=== PATIENT | female | born 1950 ===

== ENCOUNTER → 2017-12-12 | Outpatient (CLI) | payer OTHER ==
[~2017-12-12] MED LIST: ASPCH81X PO; HYZ/50125 PO; MISC1CAP27 PO; MULT-506 PO; MULT-842 PO; ROSU5TAB PO
--- NOTE | 2017-12-12 11:58 | DIAGNOSTIC IMAGING REPORT ---
PET/CT SKULL-THIGH HISTORY: Metastatic disease BREAST CANCER TECHNIQUE: PET/CT was performed from the base of the skull through the pelvis following the intravenous administration of 15.2 mCi of F18-FDG. Non-contrast CT imaging was performed over the same range without breath-hold for attenuation correction of PET images and anatomic correlation, but not for primary interpretation as it is not of standard diagnostic quality. CT DOSE: COMPARISON: 08/30/2017 FINDINGS: HEAD AND NECK: There is no FDG-avid disease or significant lymphadenopathy in the imaged portions of the head and the neck. CHEST: Persistent increase in metabolic activity left fourth rib. As she views at maximum 2.2. Geographic extent of the lesion in terms of metabolic activity appears to be no new or interval interval findings within the chest are identified. There is physiologic activity within the myocardium. There is stable postoperative changes and minimal residual activity on a postoperative basis of the right breast. Diminished suggesting partial healing. ABDOMEN/PELVIS: Below the diaphragm, tracer is distributed physiologically in the gastrointestinal and genitourinary tracts. There is no significant lymphadenopathy and no FDG-avid disease. MUSCULOSKELETAL: Left fourth rib activity again mildly improved. IMPRESSION: 1. Stable to slightly improved exam compared to the prior study. 2. Geographic extent and metabolic activity characteristics of the left fourth rib lesion are mildly improved. 3. No new interval or progressive process. The above report was generated using voice recognition software. It may contain grammatical, syntax or spelling errors. Electronically signed by: Vaughn Arana M.D. 12/12/2017 11:57 AM Dictated Date/Time: 12/12/2017 11:20 AM
== END | disposition home or self-care (01) ==
LOC: C.PET 09:02
PROVIDERS: ATTEND Internal Medicine Hematology & Oncology
DX: C50.111 Malignant neoplasm of central portion of right female breast (principal)

== ENCOUNTER → 2018-01-25 | Outpatient (CLI) | payer OTHER ==
[2018-01-25 08:43] VITALS: BP 110/72; PULSE 60; TEMP 36.6; O2SAT 96
--- NOTE | 2018-01-25 10:38 | Radiation Oncology Follow-Up ---
Radiation Oncology Follow-Up Date of Visit Jan 25, 2018. Reason For Visit One-month follow-up Radiation Completion Date To left fourth rib 12/25/17 Diagnosis (1) Carcinoma of central portion of right breast in female, estrogen receptor positive Status: Acute Onset Date: 08/30/2017 Location: Metastasis to the left posterior fourth rib Stage: IV Permanent Comment: Self detected upper central right breast mass Status post biopsy 08/14/2014 Invasive ductal carcinoma Estrogen receptor positive, progesterone receptor positive, HER-2/nataliia negative Status post lumpectomy and sentinel lymph node biopsy limit the 2013 Stage pT2 pN0 M0 Status post completion of radiation therapy November 2014 Antiestrogen therapy November 2014 to June 2017 Rise in CEA prompting completion of CAT scans 05/20/2017 Abnormality of the fourth left posterior rib. Status post biopsy 07/04/2017 revealing metastatic ductal carcinoma Initiation of Aromasin and Xgeva. Aromasin discontinued due to a fatty liver August 2017 treatment with Faslodex and Xgeva PET/CT confirming activity of the left fourth posterior rib Referral for radiation therapy to the area of oligometastasis Status post completion of radiation therapy December 25, 2017. She received 2750 cGy Last Edited By: Anne Winter on Jan 01, 2018 11:28 History of Present Illness Ms Carbajal was found to have a right breast cancer biopsy positive on 2013. Patient went on to have a right lumpectomy and sentinel lymph node biopsy on 09/09/2014. This revealed an invasive ductal carcinoma with 3 negative sentinel lymph nodes. There was evidence of vascular invasion present. The lesion was ER/RI positive and HER-2/nataliia negative. Patient subsequently received a course of adjuvant radiation consisting of 25 fractions of 200 cGy per fraction and a 5 fraction electron boost to the excision cavity. The treatment was delivered from October 2014 and completed on 11/24/2014. The patient then went on to receive treatment with Fosamax and Femara. She was treated from 11/24/2014 through June 2017. Patient continued to have evaluation of her primary site and underwent bilateral diagnostic mammograms on 03/19/2017 which showed no evidence of recurrent disease. A bone density study was performed on 04/26/2017. Bone scan was performed on 05/22/2017. This showed uptake at the posterior lateral portion of the left fourth rib. No other sites of metastatic disease were appreciated. On 07/23/2017 patient underwent bilateral breast ultrasounds with additional studies advised. At this time patient was noted to have a rising CEA. Patient therefore underwent a CT scan of the chest abdomen and pelvis performed on 05/20/2017. This showed a lesion involving the left fourth rib. A biopsy of this lesion was performed on 07/04/2017 and was consistent with metastatic ductal carcinoma. This lesion was strongly ER and RI positive. HER- 2/nataliia was equivocal (2+) and was non-amplified by FISH. Ki-67 index was 15%. Patient had an ultrasound of the pelvis secondary to a fatty liver. Patient was subsequently started on Aromasin and Xgeva starting on 07/25/2017. Patient stopped the Aromasin in August 2017 and started Faslodex and continued on the Xgeva. Patient underwent a PET CT scan on 08/30/2017. This identified a metabolically active bone lesion in the posterior ARC of the left fourth rib. This was suggestive of a single (oligo metastatic) bony metastatic site. The patient was seen by a radiation oncologist in [facility]. They suggested consideration of a stereotactic SB RT treatment given the oligo metastatic site. This treatment was apparently not available including the possibility of respiratory gating and IGRT. For this reason they suggested consideration of treatment in the [place]. Patient was seen by Dr. Joseph Headley, Radiation Oncologist at the [facility] in [place]. They have recommended a repeat PET scan which was referenced above showing no additional sites of metastatic disease. Based on these findings they recommended consultation with radiation oncology to discuss radiation to the disease. They recommended continuing Aromasin plus Afinitor. We're therefore seeing her to evaluate the potential role of radiation in the setting of ongoing metastatic ( bony) site of breast primary. She completed radiation therapy December 25, 2017. She received 2750 cGy to the left rib oligometastasis. Interim History She has been doing well over the past month. She did not develop any area of skin irritation. She denies any pain in her back. She will be seeing Dr. Carly Morrow in follow-up February 04, 2018. Laboratory studies are ordered for prior to that visit. [place] to [place] middle of [place]. She stated she would like a letter for her dentist in regards to any effect radiation would have on dental work. We discussed that radiation exposure to this area is negligible due to the distance from where she had her actual treatment. Nonetheless a letter will be written. The issue more lies within her treatment with Xgeva. They are aware of those particular side effects. We will discuss that further with Dr. Riojas. She also questions about easy bruising. She does take aspirin daily at the instructions of her family physician. We reviewed that this may cause her to bruise more easily also thinning of the skin due to lack of estrogen. She will also discuss this further with her family doctor as well as Dr. Riojas. Allergies Coded Allergies: No Known Allergies (Unverified , 11/22/17) Home Medications Scheduled Aspirin (Aspirin Chewable), 81 MG PO DAILY Misc Natural Products (Triple Flex), 1 CAP PO DAILY Multiple Minerals W/ Vitamins (Tejas Mag Zinc +D3), 1 TAB PO DAILY Multivitamin (Multivitamin), 1 TAB PO DAILY Rosuvastatin Calcium (Crestor), 2 TAB PO DAILY Scheduled PRN Hctz/Losartan (Hyzaar 12.5MG/50MG), 1 TAB PO DAILY PRN for UNDECIDED Review of Systems Gastrointestinal: Symptoms: WNL Oral: Other Oral Symptoms: Has a salty taste in her mouth;Craves sweets; Respiratory: Symptoms: WNL Urinary: Symptoms: WNL Skin: Symptoms: No Problems Physical Exam Vital Signs Date Time Temp Pulse Resp B/P (MAP) Pulse Ox O2 Delivery O2 Flow Rate FiO2 01/25/18 08:43 36.6 60 24 110/72 96 Fatigue: None General Appearance: no apparent distress Eyes: normal inspection, EOMI ENT: normal ENT inspection, hearing grossly normal Neck: no adenopathy, thyroid normal Respiratory/Chest: lungs clear, no respiratory distress, no accessory muscle use Cardiovascular: regular rate, rhythm, no gallop, no murmur Neurologic/Psychiatric: no motor/sensory deficits, alert, normal mood/affect Skin: normal color, warm/dry, no rash Additional Exam Notes: There is no tenderness of the paraspinous musculature or spinal processes. There are no areas of hyperpigmentation. Pain Management Patient Reports Pain: No Pain Management Plan She denied pain therefore requires no pain management. She did ask if she would develop pain what medicines she could use. She periodically uses Aleve or Tylenol. I suggested she use Tylenol should she develop discomfort. Laboratory Laboratory Results: not applicable Pathology Pathology Results: were reviewed, and pertinent findings noted in HPI Imaging Imaging Studies: were reviewed, and pertinent findings noted in HPI Assessment & Plan Plan: She will continue regular follow-up with Dr. Riojas and her primary care physician. She is seeing Dr. Riojas on February 04, 2018. She will discuss further her problems with easy bruising. She also discuss concerns for future dental procedures with Dr. Riojas. We will write her a letter and send it to her home in regards to radiation exposure. This will be mailed to her son's home she is living with him currently. A follow-up appointment with our office was not given. She or her son may call if she has any questions or concerns in the interim. Total Time In Follow-Up I spent 20 minutes speaking to the patient and performing examination. I spent 20 minutes reviewing information, preparing documentation, and completing this note. Copy To Thomas Riojas MD
== END | disposition home or self-care (01) ==
LOC: C.ONC 08:34
PROVIDERS: ATTEND Physician Assistant Medical
DX: Z08 Encounter for follow-up examination after completed treatment for malignant neoplasm (principal); Z92.3 Personal history of irradiation; Z85.3 Personal history of malignant neoplasm of breast

== ENCOUNTER → 2018-01-28 | Outpatient (CLI) | payer OTHER | END | disposition home or self-care (01) | LOC: C.LABSPEC 11:55 | PROVIDERS: ATTEND Physician Assistant | DX: E78.5 Hyperlipidemia, unspecified (principal); E55.9 Vitamin D deficiency, unspecified; R23.8 Other skin changes ==

== ENCOUNTER → 2018-07-01 | Outpatient (CLI) | payer OTHER | END | disposition home or self-care (01) | LOC: C.LAB 09:22 | PROVIDERS: ATTEND Internal Medicine | DX: E55.9 Vitamin D deficiency, unspecified (principal) ==

== ENCOUNTER 2021-01-18 12:10 | Inpatient (IN) ==
--- NOTE | 2021-01-18 13:27 | Emergency Department Note ---
Impression & Plan Pulmonary emboli, Malignant neoplasm of breast metastatic to bone, Abdominal pain, Acute hypokalemia ED Provider Note NAME: JAMES PEREZ AGE: 70 SEX: F : 1950 ARRIVES VIA: Ambulance INFORMANT: Patient ED PROVIDER(S): Chris Jacobson DO CHIEF COMPLAINT: abdominal pain HPI: Patient is a 70-year-old female with metastatic breast cancer to multiple spots that presents the ER for abdominal pain. She notes that she has been having small loose bowel movements for the past week but has not had a large normal bowel movement. She has not been eating or drinking much. She notes that she has some crampy abdominal pain which comes and goes intermittently. She describes as a 4 out of 10. No nausea or vomiting. Denies any dysuria, urgency, or frequency. describes the stool as a sticky jelly but denies any dark tarry stools or bright red blood per rectum. She takes oral chemo daily and every 28 days gets an injection. She does admit to upper and lower back pain which has been present fairly consistently. She does have pain throughout the remainder of her body which is fairly consistent with what she has had before in the past ROS: See above HPI for pertinent positives & negatives. A total of 10 systems r eviewed and were otherwise negative. PAST MEDICAL HISTORY:See Below PAST SURGICAL HISTORY:See Below FAMILY HISTORY:See Below SOCIAL HISTORY:See Below HOME MEDICATIONS:See Below ALLERGIES:See Below VITALS:See Below PHYSICAL EXAMINATION: GENERAL: Sitting up in bed, alert, well appearing, well nourished, no distress, non-toxic EYE EXAM: normal conjunctiva. OROPHARYNX: no exudate, no erythema, lips, buccal mucosa, and tongue normal and mucous membranes are moist NECK: supple, no nuchal rigidity, no adenopathy, non-tender LUNGS: Clear to auscultation. Normal chest wall mechanics HEART: no murmurs, S1 normal and S2 normal ABDOMEN: abdomen soft, non-tender, normo-active bowel sounds, no masses, no rebound or guarding. : Newman in place UPPER EXTREMITIES: upper extremities are grossly normal. LOWER EXTREMITIES: No pitting edema. NEURO EXAM: Normal sensorium, cranial nerves II-XII grossly intact, normal speech, no gross weakness of arms, no gross weakness of legs. MEDICAL DECISION MAKING: Patient is a 70-year-old female with metastatic cancer that presents the ER for abdominal pain. IV was established blood work was obtained. Labs show mild leukopenia at 3.9 thousand and is fairly consistent with previous. No significant anemia. INR unremarkable. BMP with mild hyponatremia at 133 and hypokalemia 2.8. LFTs bilirubin and lipase is unremarkable. UA with nitrates, leuks and white cells and +4 bacteria. Previous cultures were reviewed. She was treated with IV Rocephin. She is given IV potassium. She is given IV pain medications. Discussed with patient and son via telephone. Patient has no previous brain bleeds. She is not been coughing up blood, vomiting blood or having blood in her stool. On the CT of her abdomen pelvis they did find pulmonary embolisms. Patient was placed on heparin and started a low dose bolus. They are updated bedside. Discussed with hospitalist for further evaluation. Triage Nursing notes reviewed. Limited review of prior medical records performed Vital Signs: reviewed and remarkable for no significant abnormalities Differential diagnosis: Differential diagnoses includes but is not limited to gastritis, peptic ulcer disease, GERD, gallbladder disease, pancreatitis, small bowel obstruction, acute coronary syndrome, pericarditis, ischemic bowel, irritable bowel disease, irritable bowel syndrome, appendicitis, diverticulitis, malignancy, hernia, urinary tract infection, torsio, perforation, trauma, infectious. ER treatment provided: See below Diagnostics interpreted by me: ECG: Sinus rhythm rate 62 Normal axis No PVCs QTC 399 Cardiac Monitoring: An order was placed for continuous cardiac monitoring. The monitor shows a rate of 68 with sinus rhythm. Laboratory studies: As stated above and show below. Imaging studies: CT abdomen pelvis as discussed above Consultation(s): Discussed with the hospitalist for further evaluation Procedures: none Critical Care: I have personally spent 32 minutes of critical care time in the direct management of this patient. This includes bedside care, interpretation of diagnostic studies, and testing, discussion with consultants, patient, and family members, and other required patient management activities. This 32 minutes is in excess of all separately billable procedures. 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, estrogen receptor positive (08/30/17) Constipation Dyslipidemia Fever Hyperlipidemia Hypertension Hypertension Malignant neoplasm of bone Metastatic breast cancer Osteoporosis Surgical History H/O colonoscopy History of 2 sections History of hemorrhoidectomy History of hysterectomy History of lumpectomy Family History Father Hypertension Myocardial infarction Mother Heart disease Malignant neoplasm of gallbladder Sister Cervical cancer Other Cancer Denies family history of Ovarian cancer Prostate cancer Breast cancer Colorectal cancer Social History Smoking Status: Never smoker Second Hand Exposure: No; Hx Alcohol Use: No Hx Substance Use: No Preferred Language: Botswanan Communication Ability: Effective Visual Impairment: No Limitations Hearing Ability: Normal Tonal Regulator Required: No Beliefs That Will Affect Care: None marital status: Current Living Situation: Spouse Feels Safe at Home: Yes Childhood Exposure to Second-Hand Smoke: No Dental Care, Regularly: Yes Assistive Devices: None Allergies Allergies Allergy/AdvReac Type Severity Reaction Status Date / Time lactose Allergy Unknown Gastrointestinal Verified 01/18/21 15:26 Upset pork derived (porcine) Allergy Unknown CULTURE Verified 01/18/21 15:26 ISSUES Pork/Porcine Containing Allergy Unknown CULTURE Verified 01/18/21 15:26 Products ISSUES gluten AdvReac Intermediate Gastrointestinal Verified 01/18/21 15:26 Upset tramadol AdvReac Intermediate itching, Verified 01/18/21 15:26 stomach ache, gas and nausea & no appetite. grapefruit AdvReac Unknown Unknown Verified 01/18/21 15:26 Home Meds Home Medications Medication Instructions Recorded Confirmed fentanyl 1 patch TOPICAL Q3D 12/08/20 01/18/21 lidocaine 1 patch TOPICAL DAILY 12/08/20 01/18/21 prochlorperazine maleate 10 mg PO Q6H PRN 12/08/20 01/18/21 acetaminophen [Tylenol] 650 mg PO Q6H PRN 01/18/21 01/18/21 bisacodyl 10 mg FL QPM 01/18/21 01/18/21 dexamethasone 4 mg PO BID 01/18/21 01/18/21 docusate sodium 100 mg PO BID 01/18/21 01/18/21 everolimus (antineoplastic) 7.5 mg PO HS 01/18/21 01/18/21 hydromorphone [Dilaudid] 2 - 6 mg PO Q3H PRN 01/18/21 01/18/21 lorazepam 0 mg PO TID PRN 01/18/21 01/18/21 melatonin 3 mg PO HS 01/18/21 01/18/21 memantine See Rx Instructions .ROUTE .COMPLEX 01/18/21 01/18/21 mirtazapine 15 mg PO HS 01/18/21 01/18/21 nystatin 1 applic TOPICAL BID PRN 01/18/21 01/18/21 olanzapine 5 mg PO HS 01/18/21 01/18/21 ondansetron 4 mg PO AC 01/18/21 01/18/21 phenyleph-shark [id number] 1 applic FL QID PRN 01/18/21 01/18/21 [Preparation H] polyethylene glycol 3350 [Miralax] 17 g PO DAILY PRN 01/18/21 01/18/21 sennosides [senna] 17.2 mg PO HS PRN 01/18/21 01/18/21 Previous Rx's Medication Instructions Recorded pantoprazole [Protonix] 40 mg PO QAM #30 tab 11/02/20 losartan 25 mg tablet 25 mg PO QDL #90 tab 11/04/20 lactulose 20 g PO BID #1500 ml 11/06/20 Results & Data (ED) Vital Signs Vital Signs - 24 hr 01/18/21 12:29 01/18/21 13:55 Temperature 37.1 C Temperature Source Oral Pulse Rate 87 Pulse Rate [Right Finger] 78 Pulse Rhythm Regular Pulse Rhythm [Right Finger] Regular Pulse Strength Normal Pulse Strength [Right Finger] Normal Respiratory Rate 20 20 Respiratory Effort / Characteristics Non-Labored Spontaneous Non-Labored Spontaneous Respiratory Depth Normal Normal Respiratory Pattern Regular Regular Blood Pressure 136/76 Blood Pressure [Left Arm] 139/73 Blood Pressure Mean 96 Blood Pressure Mean [Left Arm] 95 Blood Pressure Position Sitting Blood Pressure Position [Left Arm] Lying Pulse Oximetry 98 97 Oxygen Delivery Method Room Air Room Air Sepsis Recent Fever Within 48 Hours No Sepsis New/Unexplained Change in Mental Status No Sepsis Action Taken by Nursing No Action Required Laboratory Data Result diagrams: 01/18/21 13:45 01/18/21 13:45 Lab Results 01/18/21 01/18/21 01/18/21 Range/Units 13:45 13:45 13:45 WBC 3.94 L (4.8-10.8) K/uL RBC 4.11 L (4.2-5.4) M/uL Hgb 12.8 (12.0-16.0) g/dL Hct 35.8 L (37-47) % MCV 87.1 (80-100) fL MCH 31.1 (25-34) pg MCHC 35.8 (32-36) g/dL RDW Std Deviation 42.6 (36.4-46.3) fL RDW Coeff of Sarah 13.2 (11.5-14.5) % Plt Count 177 (130-400) K/uL MPV 8.7 (7.4-10.4) fL Immature Gran % (Auto) 1.0 % Neut % (Auto) 82.4 % Lymph % (Auto) 11.2 % Wake % (Auto) 4.6 % Eos % (Auto) 0.8 % Baso % (Auto) 0.0 % Neut # (Auto) 3.25 (1.4-6.5) K/uL Lymph # (Auto) 0.44 L (1.2-3.4) K/uL Wake # (Auto) 0.18 (0.11-0.59) K/uL Eos # (Auto) 0.03 (0-0.5) K/uL Baso # (Auto) 0.00 (0-0.2) K/uL Immature Gran # (Auto) 0.04 H (0.00-0.02) K/uL PT (9.0-12.0) Seconds INR (0.9-1.1) APTT (21.0-31.0) Seconds PTT Ratio Sodium 133 L (136-145) mmol/L Potassium 2.8 L (3.5-5.1) mmol/L Chloride 100 (98-107) mmol/L Carbon Dioxide 26 (21-32) mmol/L Anion Gap 7.0 (3-11) BUN 10 (7-18) mg/dl Creatinine 0.35 L (0.6-1.2) mg/dl Est Cr Clr Drug Dosing 136.2 ml/min Est GFR ( Amer) 129.6 Est GFR (Non-Af Amer) 111.8 BUN/Creatinine Ratio 28.7 H (10-20) Glucose 96 (70-99) mg/dl Calcium 8.5 (8.5-10.1) mg/dl Total Bilirubin 0.4 (0.2-1) mg/dl AST 33 (15-37) U/L ALT 55 (12-78) U/L Alkaline Phosphatase 66 (45-117) U/L Total Protein 5.8 L (6.4-8.2) gm/dl Albumin 2.7 L (3.4-5.0) gm/dl Globulin 3.1 (2.5-4.0) gm/dl Albumin/Globulin Ratio 0.9 (0.9-2) Lipase 129 (73-393) U/L Urine Color Dark Yellow Urine Appearance Turbid A (Clear) Urine pH 6.0 (4.5-7.5) Ur Specific [place] 1.031 H (1.000-1.030) Urine Protein 1+ H (Negative) Urine Glucose (UA) Negative (Negative) Urine Ketones 1+ H (Negative) Urine Blood 3+ H (Negative) Urine Nitrite Positive A (Negative) Urine Bilirubin Negative (Negative) Urine Urobilinogen Negative (Negative) Ur Leukocyte Esterase 2+ H (Negative) Urine WBC (Auto) >30 H (0-5) /hpf Urine RBC (Auto) 0-4 (0-4) /hpf U Hyaline Cast (Auto) 0 (0-5) /lpf U Epithel Cells (Auto) 0-5 (0-5) /lpf Urine Bacteria (Auto) 4+ H (Negative) Urine Yeast Present A (None Prsent) 01/18/21 Range/Units 13:45 WBC (4.8-10.8) K/uL RBC (4.2-5.4) M/uL Hgb (12.0-16.0) g/dL Hct (37-47) % MCV (80-100) fL MCH (25-34) pg MCHC (32-36) g/dL RDW Std Deviation (36.4-46.3) fL RDW Coeff of Sarah (11.5-14.5) % Plt Count (130-400) K/uL MPV (7.4-10.4) fL Immature Gran % (Auto) % Neut % (Auto) % Lymph % (Auto) % Wake % (Auto) % Eos % (Auto) % Baso % (Auto) % Neut # (Auto) (1.4-6.5) K/uL Lymph # (Auto) (1.2-3.4) K/uL Wake # (Auto) (0.11-0.59) K/uL Eos # (Auto) (0-0.5) K/uL Baso # (Auto) (0-0.2) K/uL Immature Gran # (Auto) (0.00-0.02) K/uL PT 10.4 (9.0-12.0) Seconds INR 1.0 (0.9-1.1) APTT 21.7 (21.0-31.0) Seconds PTT Ratio 0.8 Sodium (136-145) mmol/L Potassium (3.5-5.1) mmol/L Chloride (98-107) mmol/L Carbon Dioxide (21-32) mmol/L Anion Gap (3-11) BUN (7-18) mg/dl Creatinine (0.6-1.2) mg/dl Est Cr Clr Drug Dosing ml/min Est GFR ( Amer) Est GFR (Non-Af Amer) BUN/Creatinine Ratio (10-20) Glucose (70-99) mg/dl Calcium (8.5-10.1) mg/dl Total Bilirubin (0.2-1) mg/dl AST (15-37) U/L ALT (12-78) U/L Alkaline Phosphatase (45-117) U/L Total Protein (6.4-8.2) gm/dl Albumin (3.4-5.0) gm/dl Globulin (2.5-4.0) gm/dl Albumin/Globulin Ratio (0.9-2) Lipase (73-393) U/L Urine Color Urine Appearance (Clear) Urine pH (4.5-7.5) Ur Specific [place] (1.000-1.030) Urine Protein (Negative) Urine Glucose (UA) (Negative) Urine Ketones (Negative) Urine Blood (Negative) Urine Nitrite (Negative) Urine Bilirubin (Negative) Urine Urobilinogen (Negative) Ur Leukocyte Esterase (Negative) Urine WBC (Auto) (0-5) /hpf Urine RBC (Auto) (0-4) /hpf U Hyaline Cast (Auto) (0-5) /lpf U Epithel Cells (Auto) (0-5) /lpf Urine Bacteria (Auto) (Negative) Urine Yeast (None Prsent) Administered Medications Heparin Sodium/Dextrose (Heparin Sodium/Dextrose) 25,000 units in 500 mls @ 0.02 mls/hr IV .Q24H KEYANNA; Protocol Stop: 02/17/21 15:29 Last Admin: 01/18/21 16:22 Dose: 650 units/hr, 13 mls/hr Documented by: [id number] Cosigned by: [id number] Discontinued Medications Heparin Sodium (Porcine) (Heparin Sod (Porcine) 1000 Unit/Ml 10 Ml Vial) Confirm Administered Dose 10,000 units .ROUTE .STK-MED ONE Stop: 01/18/21 16:03 Last Admin: 01/18/21 16:22 Dose: 3,000 units Documented by: [id number] Cosigned by: [id number] Heparin Sodium/Dextrose (Heparin Iv Low Dose With Bolus) 1 ea IV NOW STA; Protocol Stop: 01/18/21 15:23 Last Admin: 01/18/21 16:23 Dose: 1 ea Documented by: [id number] Sodium Chloride (Nss 1000ml) 1,000 mls @ 999 mls/hr IV .Q1H1M ONE Stop: 01/18/21 14:28 Last Admin: 01/18/21 13:54 Dose: 999 mls/hr Documented by: [id number] Potassium Chloride (K [place] / Wtr) 10 meq in 100 mls @ 100 mls/hr IV Q1H KEYANNA Stop: 01/18/21 17:14 Last Admin: 01/18/21 16:05 Dose: 100 mls/hr Documented by: [id number] Ioversol (Ioversol 100ml) 92 ml IV ONCE ONE Stop: 01/18/21 14:36 Last Admin: 01/18/21 14:37 Dose: 92 ml Documented by: [id number] Discharge Plan Visit Data Chief Complaint: Constipation ED Provider: Chris Jacobson Discharge Problem: Pulmonary emboli, Malignant neoplasm of breast metastatic to bone, Abdominal pain, Acute hypokalemia Forms Stand Alone Forms: [employer] Prescriptions Prescriptions: No Action losartan 25 mg tablet 25 mg PO QDL Qty: 90 RF: 3 pantoprazole [Protonix] 40 mg tablet,delayed release (DR/EC) 40 mg PO QAM Qty: 30 RF: 1 lactulose 20 gram/30 mL solution 20 g PO BID Qty: 1500 RF: 0 fentanyl 50 mcg/hr patch 72 hour 1 patch topical Q3D RF: 0 prochlorperazine maleate 10 mg tablet 10 mg PO Q6H PRN (Reason: Nausea) RF: 0 lidocaine 5 % adhesive patch,medicated 1 patch topical DAILY RF: 0 sennosides [senna] 8.6 mg Tablet 17.2 mg PO HS PRN (Reason: Constipation) RF: 0 acetaminophen [Tylenol] 325 mg Tablet 650 mg PO Q6H PRN (Reason: Mild Pain (Scale Score 1-4)) RF: 0 olanzapine 5 mg Tablet 5 mg PO HS RF: 0 melatonin 3 mg Tablet 3 mg PO HS RF: 0 bisacodyl 10 mg Suppository 10 mg FL QPM RF: 0 nystatin 100,000 unit/gram Cream 1 applic TOPICAL BID PRN (Reason: Rash) RF: 0 dexamethasone 4 mg Tablet 4 mg PO BID RF: 0 docusate sodium 100 mg Capsule 100 mg PO BID RF: 0 mirtazapine 15 mg Tablet 15 mg PO HS RF: 0 polyethylene glycol 3350 [Miralax] 17 gram/dose Powder 17 g PO DAILY PRN (Reason: Constipation) RF: 0 lorazepam 2 mg/mL concentrate 0 mg PO TID PRN (Reason: Anxiety) RF: 0 memantine 5 mg Tablet See Rx Instructions .ROUTE .COMPLEX RF: 0 Preparation H Cream 1 applic FL QID PRN (Reason: Hemorrhoids) RF: 0 everolimus (antineoplastic) 7.5 mg Tablet 7.5 mg PO HS RF: 0 hydromorphone [Dilaudid] 2 mg tablet 2 - 6 mg PO Q3H PRN (Reason: pain) RF: 0 ondansetron 4 mg tablet,disintegrating 4 mg PO AC RF: 0 Discharge Problem: Pulmonary emboli Qualifiers: Pulmonary embolism type: unspecified Chronicity: acute Acute cor pulmonale presence: unspecified Qualified Code(s): I26.99 - Other pulmonary embolism without acute cor pulmonale Abdominal pain Qualifiers: Abdominal location: unspecified location Qualified Code(s): R10.9 - Unspecified abdominal pain
[2021-01-18] MEDS ORDERED: SODIUM CHLORIDE 0.9% 1000ML 1,000 ML IV ONE (13:28)
[2021-01-18 14:04] LABS: Eosinophils # (auto) 0.03 K/uL (0-0.5); Eosinophils % (auto) 0.8 %; Hematocrit (blood only) 35.8 % (37-47); Hemoglobin 12.8 g/dL (12.0-16.0); Immature Granulocytes # (auto) 0.04 K/uL (0.00-0.02); Lymphocytes # (auto) 0.44 K/uL (1.2-3.4); Lymphocytes % (auto) 11.2 %; Mean Corpuscular Hemoglobin 31.1 pg (25-34); Mean Corpuscular Hgb Conc 35.8 g/dL (32-36); Mean Corpuscular Volume 87.1 fL (80-100); Mean Platelet Volume 8.7 fL (7.4-10.4); Monocytes # (auto) 0.18 K/uL (0.11-0.59); Monocytes % (auto) 4.6 %; Neutrophils # (auto) 3.25 K/uL (1.4-6.5); Neutrophils % (auto) 82.4 %; Platelet Count 177 K/uL (130-400); RDW Coefficient of Variation 13.2 % (11.5-14.5); RDW Standard Deviation 42.6 fL (36.4-46.3); Red Blood Count 4.11 M/uL (4.2-5.4); White Blood Count 3.94 K/uL (4.8-10.8)
[2021-01-18 14:06] LABS: Appearance Urine Turbid (Clear); Bacteria Urine Automated 4+ (Negative); Bilirubin Urine Negative (Negative); Blood Urine 3+ (Negative); Color Urine Dark Yellow; Epithelial Cell Urine Auto 0-5 /lpf (0-5); Glucose Urine UA Negative (Negative); Ketones Urine 1+ (Negative); Leukocyte Esterase Urine 2+ (Negative); Nitrite Urine Positive (Negative); Protein Urine 1+ (Negative); Specific Gravity Urine 1.031 (1.000-1.030); Urobilinogen Urine Negative (Negative); WBC Urine Automated >30 /hpf (0-5)
[2021-01-18 14:21] LABS: Cast Urine Automated 0 /lpf (0-5); RBC Urine Automated 0-4 /hpf (0-4)
[2021-01-18 14:26] LABS: Albumin Level 2.7 gm/dl (3.4-5.0); BUN Creatinine Ratio 28.7 (10-20); Calcium 8.5 mg/dl (8.5-10.1); Creatinine Clr Calc Pharmacy 136.2 ml/min; Est GFR (African American) 129.6; Est GFR (Non-African American) 111.8; Potassium 2.8 mmol/L (3.5-5.1)
[2021-01-18 14:28] LABS: Albumin Globulin Ratio 0.9 (0.9-2); Bilirubin,Total 0.4 mg/dl (0.2-1); Globulin 3.1 gm/dl (2.5-4.0); Total Protein 5.8 gm/dl (6.4-8.2)
[2021-01-18] MEDS ORDERED: OPTIRAY 320 100ml IV ONE (14:35)
--- NOTE | 2021-01-18 14:56 | CT Scan Report ---
CT abd pelvis IV con only CLINICAL HISTORY: Abdominal pain. Metastatic carcinoma. COMPARISON STUDY: December 08, 2020 TECHNIQUE: Patient was scanned in a dynamic helical fashion during intravenous administration of 92 c c of Optiray 320 A dose lowering technique was utilized adhering to the principles of ALARA. CT DOSE: 323.17 mGycm FINDINGS: Lower chest: There is a suspected right lower lobe pulmonary artery filling defect. CT angiography th e chest should be considered in follow-up to confirm the presence of pulmonary embolism. There are le ft basilar atelectatic changes. Liver: There are stable too small to characterize there is a new 7 mm right hepatic lobe hypodensity. Metastatic disease must be considered. There are a few additional tiny too small to characterize hep atic hypodensities. Gallbladder: Unremarkable. Spleen: Normal in size and attenuation. Pancreas: Unremarkable. Adrenal glands: Unremarkable. Kidneys: There is symmetric renal cortical enhancement. The kidneys are normal in size without hydron ephrosis. Bowel: There is a stool and fluid-filled distended colon down to the level of the anus. There is rect al wall thickening. There is presacral edema. Clinical correlation regards to a proctitis is recommen ded. There are no transition zones to indicate bowel obstruction. The appendix appears normal. Peritoneum: There is no free air. There is minimal presacral edema/fluid. There is trace fluid parall eling the left iliac vessels. Vasculature: The abdominal aorta is normal in course and caliber. Adenopathy: None. Pelvic viscera: The uterus appears surgically absent. There is an indwelling Newman catheter. Skeletal structures: No destructive osseous lesions are seen. There is a stable sclerotic lesion invo lving the left anterior eighth rib. IMPRESSION: 1. Possible right lower lobe pulmonary artery filling defect. CT angiography the chest should be cons idered in follow-up to confirm or effusion presence of acute pulmonary embolism 2. Interval development of a 7 mm hypodense lesion within the right hepatic lobe. Metastatic disease is the diagnosis of exclusion 3. Distended stool and fluid-filled colon. The rectum measures 73 mm in diameter. There is rectal wal l thickening, and presacral edema. Clinical correlation regards to a proctitis is recommended. ACT 112: Negative or not required by law. Electronically signed by: Blake Patel M.D. 01/18/2021 2:54 PM
[2021-01-18] MEDS ORDERED: Heparin IV Adult Wt-Based Low-Dose WITH Bolus Protocol IV STA (15:22)
[2021-01-18] MEDS ORDERED: cefTRIAXone SODIUM 1,000 MG/50 ML BAG IV STA (15:27)
[2021-01-18] MEDS: HEPARIN SOD (PORCINE) 1000 UNIT/ML ONE ×2 (16:04→16:22)
[2021-01-18] MEDS: HEPARIN SODIUM/DEXTROSE 25,000 UNITS/500 ML BAG IV SCH ×2 (16:04→16:22)
[2021-01-18] MEDS: POTASSIUM CHLORIDE / WTR 10 MEQ/100 ML PLCT IV SCH ×2 (16:05→17:28)
[2021-01-18 16:29] LABS: Partial Thromboplastin Ratio 0.8; Partial Thromboplastin Time 21.7 Seconds (21.0-31.0); Prothrombin Time 10.4 Seconds (9.0-12.0)
--- NOTE | 2021-01-18 16:56 | History & Physical Report ---
Date of Service January 18, 2021 Assessment & Plan (1) Malignant neoplasm of breast metastatic to bone: End stage, Stage IV breast cancer with metastatic disease to brain and bone. Was recently discharged from a [facility] hospital. Attempted to call Dr. Schultz's office, but no answer. Will try again tomorrow. - Continue home everolimus - Palliative care consult (2) Constipation: CT a/p review by me on 01/18. Grossly distended colon, though no distal b lockage. Higher stool burden is likely causing overflow diarrhea. - Will reach out to general surgery tomorrow re: OR washout. - Aggressive upper bowel regimen in hopes of loosening higher stool. (3) Pulmonary embolism: PE incidentally noted on CT a/p on 01/18. No present symptoms. - Heparin gtt initiated by the ED. - Will get CTA chest to bag patcher clot burden. - TTE (4) Hypertension: BP presetnly 140/70. - Continue home losartan History of Present Illness Primary Care Provider: Manolo Troy MD 70yo F w/ hx of metastatic breast cancer who presents with constipation and newly found PE. The patient was in the hospital until approx. 1 week ago when she was sent home from a [facility] hospital. Her reports that for the last week, she has had no solid BMs and only had watery BMs since then. She has also had increasing stomach & abdominal pain. She was brought to the ER, and was found to have a PE. She denies shortness of breath or chest pain at this time. Allergies Allergy/AdvReac Type Severity Reaction Status Date / Time lactose Allergy Unknown Gastrointestinal Verified 01/18/21 15:26 Upset pork derived (porcine) Allergy Unknown CULTURE Verified 01/18/21 15:26 ISSUES Pork/Porcine Containing Allergy Unknown CULTURE Verified 01/18/21 15:26 Products ISSUES gluten AdvReac Intermediate Gastrointestinal Verified 01/18/21 15:26 Upset tramadol AdvReac Intermediate itching, Verified 01/18/21 15:26 stomach ache, gas and nausea & no appetite. grapefruit AdvReac Unknown Unknown Verified 01/18/21 15:26 Home Medications Medication Instructions Recorded Confirmed Type pantoprazole [Protonix] 40 mg PO QAM #30 tab 11/02/20 01/18/21 Rx losartan 25 mg tablet 25 mg PO QDL #90 tab 11/04/20 01/18/21 Rx lactulose 20 g PO BID #1500 ml 11/06/20 01/18/21 Rx fentanyl 1 patch TOPICAL Q3D 12/08/20 01/18/21 History lidocaine 1 patch TOPICAL DAILY 12/08/20 01/18/21 History prochlorperazine maleate 10 mg PO Q6H PRN 12/08/20 01/18/21 History acetaminophen [Tylenol] 650 mg PO Q6H PRN 01/18/21 01/18/21 History bisacodyl 10 mg NV QPM 01/18/21 01/18/21 History dexamethasone 4 mg PO BID 01/18/21 01/18/21 History docusate sodium 100 mg PO BID 01/18/21 01/18/21 History everolimus (antineoplastic) 7.5 mg PO HS 01/18/21 01/18/21 History hydromorphone [Dilaudid] 2 - 6 mg PO Q3H PRN 01/18/21 01/18/21 History lorazepam 0 mg PO TID PRN 01/18/21 01/18/21 History melatonin 3 mg PO HS 01/18/21 01/18/21 History memantine See Rx Instructions .ROUTE .COMPLEX 01/18/21 01/18/21 History mirtazapine 15 mg PO HS 01/18/21 01/18/21 History nystatin 1 applic TOPICAL BID PRN 01/18/21 01/18/21 History olanzapine 5 mg PO HS 01/18/21 01/18/21 History ondansetron 4 mg PO AC 01/18/21 01/18/21 History phenyleph-shark pjw-wswh-bsf 1 applic [place] QID PRN 01/18/21 01/18/21 History [Preparation H] polyethylene glycol 3350 [Miralax] 17 g PO DAILY PRN 01/18/21 01/18/21 History sennosides [senna] 17.2 mg PO HS PRN 01/18/21 01/18/21 History Past Med/Surg History Medical History Carcinoma of central portion of right breast in female, estrogen receptor pos itive (08/30/17) Constipation Dyslipidemia Fever Hyperlipidemia Hypertension Hypertension Malignant neoplasm of bone Metastatic breast cancer Osteoporosis Surgical History H/O colonoscopy History of 2 sections History of hemorrhoidectomy History of hysterectomy History of lumpectomy Family History Father Hypertension Myocardial infarction Mother Heart disease Malignant neoplasm of gallbladder Sister Cervical cancer Other Cancer Denies family history of Ovarian cancer Prostate cancer Breast cancer Colorectal cancer Social History Smoking Status: Never smoker Second Hand Exposure: No; Hx Alcohol Use: No Hx Substance Use: No Preferred Language: Indonesian Communication Ability: Effective Visual Impairment: No Limitations Hearing Ability: Normal Application Security Engineer Required: No Beliefs That Will Affect Care: None marital status: Current Living Situation: Spouse Feels Safe at Home: Yes Childhood Exposure to Second-Hand Smoke: No Dental Care, Regularly: Yes Assistive Devices: None Review of Systems Review of Systems: All systems reviewed & are unremarkable except as noted in HPI & below Physical Exam Constitutional: + acute distress Eyes: EOM intact bilaterally; no conjunctival abnormality ENMT: external ear and nose normal, oropharynx normal Neck: trachea midline, no thyromegaly normal visual inspection Respiratory: normal respiratory effort, lungs clear to auscultation no respiratory distress Cardiovascular: RRR, no murmur, no edema Gastrointestinal (Abdomen): Inspection/Auscultation: abdomen normal to inspection; abdomen not distended Skin: no rashes, warm and dry Neurologic: awake; + does not move all extremities (No left leg movement) Speech / Cognition: + abnormal cognition (Very slow responses.) Psychiatric: Orientation: alert, oriented to person and cooperative Results & Data Results & Data ([facility]) Vital Signs (Past 12 Hours) Vital Signs Temp Pulse Pulse Resp BP BP Pulse Ox 01/18/21 13:55 78 20 139/73 97 01/18/21 12:29 37.1 C 87 20 136/76 98 PG Care Time/CCT Total # of Minutes Spent Total Time Spent with Patient: Total time spent is greater than 50% in coordination of care (as documented) at patient's floor/unit and/or counseling patient: Coding Level of Care Code 49520 Initial Inpt Care Lvl 3 Diagnoses Malignant neoplasm of breast metastatic to bone C50.919; C79.51 Constipation K59.00 Pulmonary embolism I26.99 Hypertension I10 Hypertension type: essential hypertension (1) Hypertension Hypertension type: essential hypertension Qualified Code(s): I10 - Essential (primary) hypertension
[2021-01-18] MEDS ORDERED: MoRPHine SULFATE 4 MG/ML 1 ML CARP\\VIAL IV STA (17:15)
[2021-01-18] MEDS ORDERED: PROCHLORPERAZINE MALEATE 10 MG TAB PO PRN (20:42)
[2021-01-18] MEDS ORDERED: ONDANSETRON INJ 2 MG/ML 2 ML VIAL IV PRN (20:42)
[2021-01-18] MEDS ORDERED: fentaNYL 50 MCG/HR TDSY TD SCH (21:00)
[2021-01-18] MEDS: LACTULOSE SYRUP 30 GM/45 ML UDP PO SCH (21:46)
[2021-01-18] MEDS: DOCUSATE SODIUM 100 MG CAP PO SCH (22:12)
[2021-01-18] MEDS: MIRTAZAPINE TAB 15 MG TAB PO SCH (22:12)
[2021-01-18] MEDS: SENNA 8.6 MG TAB PO PRN (22:12)
[2021-01-18] MEDS: OLANZapine 5 MG TABLET PO SCH (22:13)
[2021-01-18] MEDS: bisacodyL 10 MG SUPP PR SCH (22:14)
[2021-01-18] MEDS: LIDOCAINE 5% 1 PATCH TD SCH (22:14)
[2021-01-18] MEDS: MELATONIN 3 MG TAB PO SCH (22:31)
[2021-01-18 23:38] LABS: Partial Thromboplastin Time 53.9 Seconds (21.0-31.0)
[2021-01-19] MEDS: CHECK fentaNYL PATCH PLACEMENT SCH ×3 (00:45→15:23)
[2021-01-19] MEDS: ACETAMINOPHEN 325 MG TAB PO PRN (03:31)
[2021-01-19 07:27] LABS: Hematocrit (blood only) 33.1 % (37-47); Mean Corpuscular Hgb Conc 36.3 g/dL (32-36); Mean Corpuscular Volume 85.5 fL (80-100); Mean Platelet Volume 8.6 fL (7.4-10.4); Platelet Count 160 K/uL (130-400); Red Blood Count 3.87 M/uL (4.2-5.4); White Blood Count 3.88 K/uL (4.8-10.8)
[2021-01-19 07:51] LABS: Partial Thromboplastin Time 52.4 Seconds (21.0-31.0)
[2021-01-19] MEDS: LACTULOSE SYRUP 30 GM/45 ML UDP PO SCH ×3 (08:10→21:28)
[2021-01-19] MEDS: PANTOprazole 40 MG TAB PO SCH (08:11)
[2021-01-19] MEDS: POLYETHYLENE (MIRALAX) 17 GM PACK PO SCH (08:11)
[2021-01-19] MEDS: DOCUSATE SODIUM 100 MG CAP PO SCH ×2 (08:11→21:32)
[2021-01-19 08:16] LABS: BUN Creatinine Ratio 19.5 (10-20); Blood Urea Nitrogen 4 mg/dl (7-18); Calcium 7.2 mg/dl (8.5-10.1); Carbon Dioxide 25 mmol/L (21-32); Chloride 102 mmol/L (98-107); Creatinine Clr Calc Pharmacy 227.1 ml/min; Est GFR (African American) > 150.0; Est GFR (Non-African American) 132.3; Glucose 109 mg/dl (70-99); Magnesium 2.6 mg/dl (1.8-2.4); Potassium 2.5 mmol/L (3.5-5.1); Sodium 134 mmol/L (136-145)
[2021-01-19] MEDS: HYDROmorphone HCL 2 MG TAB PO PRN ×2 (09:45→14:23)
[2021-01-19] MEDS: EVEROLIMUS 7.5 MG PO SCH (11:59)
[2021-01-19] MEDS: LOSARTAN POTASSIUM 25 MG TAB PO SCH (12:00)
[2021-01-19] MEDS ORDERED: OPTIRAY 320 125ml IV ONE (13:09)
--- NOTE | 2021-01-19 13:24 | Hospitalist Progress Note ---
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 Was recently discharged from a [facility] hospital. Attempted to call Dr. Schultz's office, but no answer. Will try again tomorrow. - Continue home everolimus 7.5 mg PO daily - Palliative care consult (2) Constipation: CT a/p review by me on 01/18. Grossly distended colon, though no distal blockage. Higher stool burden is likely causing overflow diarrhea. - Aggressive upper bowel regimen in hopes of loosening higher stool. - Added Relistor to try to improve GI motility in the face of high opiate needs (3) Pulmonary embolism: PE incidentally noted on CT a/p on 01/18. No present symptoms. - Heparin gtt initiated by the ED. - Will get CTA chest to sewing machine mechanic clot burden. - TTE pending (4) Hypertension: BP presetnly 110/60. - Continue home losartan Admission and Anticipated Discharge Date Admission Date: January 18, 2021 Subjective More comfortable today, but no change in bowel habits. Just small, liquid. Reports no fevers/chills, chest pain, shortness of breath, abdominal pain, nausea, or vomiting. Physical Exam Constitutional: + acute distress Eyes: EOM intact bilaterally; no conjunctival abnormality ENMT: external ear and nose normal, oropharynx normal Neck: trachea midline, no thyromegaly normal visual inspection Respiratory: normal respiratory effort, lungs clear to auscultation no respiratory distress Cardiovascular: RRR, no murmur, no edema Gastrointestinal (Abdomen): Inspection/Auscultation: abdomen normal to inspection; abdomen not distended Skin: no rashes, warm and dry Neurologic: awake; + does not move all extremities (No left leg movement) Speech / Cognition: + abnormal cognition (Very slow responses.) Psychiatric: Orientation: alert, oriented to person and cooperative Results & Data Results & Data ([facility]) Vital Signs (Past 12 Hours) Vital Signs Temp Pulse Resp BP Pulse Ox 01/19/21 12:45 37.1 C 91 H 18 109/63 96 PG Care Time/CCT Total # of Minutes Spent Total Time Spent with Patient: Total time spent is greater than 50% in coordination of care (as documented) at patient's floor/unit and/or counseling patient: Coding Level of Care Code 89821 Subseq Hosp Care Lvl 2 Diagnoses Malignant neoplasm of breast metastatic to bone C50.919; C79.51 Constipation K59.00 Pulmonary embolism I26.99 Hypertension I10 Hypertension type: essential hypertension (1) Hypertension Hypertension type: essential hypertension Qualified Code(s): I10 - Essential (primary) hypertension
--- NOTE | 2021-01-19 13:43 | CT Scan Report ---
CHEST CTA for PULMONARY ARTERIES CT DOSE: 220.07 mGycm HISTORY: Pulmonary embolus identified on abdomen and pelvis CT. Assess for clot burden. History of me tastatic breast cancer. TECHNIQUE: Multiaxial CT images of the chest were performed following the intravenous administration of contrast to evaluate the pulmonary arteries. Maximal intensity projection images were also obtaine d. A dose lowering technique was utilized adhering to the principles of ALARA. COMPARISON STUDY: Chest CT 10/27/2020. FINDINGS: Normal caliber thoracic aorta with no evidence for dissection. The heart is normal in size. No pleural or pericardial effusions. Confirmation of the filling defect seen within the right lower lobe segmental and subsegmental pulmonary arteries consistent with pulmonary emboli. This is similar to the prior study. No additional filling defects within the remaining pulmonary arteries. No evidenc e for right-sided heart strain. Multinodular thyroid gland with the largest on the left measuring 8 m m. No mediastinal or hilar lymphadenopathy. Stable 8 mm hypodense lesion seen within the anterior seg ment of the right hepatic lobe. This may represent a cyst. Normal esophagus. Postoperative changes ag ain noted within the right breast. No axillary lymphadenopathy. No significant change within the oste oblastic metastatic disease most pronounced within the upper thoracic spine. No pneumothorax. The chris tral airways are patent. Stable 5 mm subpleural nodule within the right upper lobe anteriorly on imag e 95. Bibasilar linear densities favor subsegmental atelectasis. No new pulmonary nodules identified. No focal lung consolidations to suggest pneumonia. IMPRESSION: 1. Confirmation of the right lower lobe segmental/subsegmental pulmonary emboli. These are similar to the prior study. No additional pulmonary emboli identified. No evidence for right-sided heart strain . 2. Stable osteoblastic metastatic disease. 3. Stable 5 mm right upper lobe nodule. This bears watching future examinations. No new pulmonary nod ules identified. 4. These findings were called/faxed to the referring physician following dictation. ACT 112: Negative or not required by law. Electronically signed by: Shelton Salazar M.D. 01/19/2021 1:42 PM
[2021-01-19] MEDS: POTASSIUM CHLORIDE 40 MEQ in SODIUM CHLORIDE 0.9% 1000ML 1,000 ML IV SCH (14:22)
[2021-01-19] MEDS: POTASSIUM CHLORIDE CRTAB 20 MEQ TABCR PO SCH ×2 (14:22→21:26)
[2021-01-19] MEDS: METHYLNALTREXONE BROMIDE 12 MG/0.6 ML VIAL SQ SCH (14:23)
[2021-01-19] MEDS: HEPARIN SODIUM/DEXTROSE 25,000 UNITS/500 ML BAG IV SCH (15:23)
[2021-01-19] MEDS: MIRTAZAPINE TAB 15 MG TAB PO SCH (21:27)
[2021-01-19] MEDS: OLANZapine 5 MG TABLET PO SCH (21:27)
[2021-01-19] MEDS: LIDOCAINE 5% 1 PATCH TD SCH (21:29)
[2021-01-19] MEDS: bisacodyL 10 MG SUPP PR SCH (21:32)
[2021-01-19] MEDS: MELATONIN 3 MG TAB PO SCH (21:32)
[2021-01-20] MEDS: CHECK fentaNYL PATCH PLACEMENT SCH ×5 (00:01→23:22)
[2021-01-20] MEDS: fentaNYL 50 MCG/HR TDSY TD SCH (00:47)
[2021-01-20] MEDS: ACETAMINOPHEN 325 MG TAB PO PRN ×2 (04:48→19:29)
[2021-01-20] MEDS: LACTULOSE SYRUP 30 GM/45 ML UDP PO SCH ×4 (08:31→22:10)
[2021-01-20] MEDS: PANTOprazole 40 MG TAB PO SCH (08:32)
[2021-01-20] MEDS: POLYETHYLENE (MIRALAX) 17 GM PACK PO SCH (08:33)
[2021-01-20] MEDS: EVEROLIMUS 7.5 MG PO SCH (08:34)
[2021-01-20] MEDS: DOCUSATE SODIUM 100 MG CAP PO SCH ×2 (08:36→21:02)
[2021-01-20] MEDS: HYDROmorphone HCL 2 MG TAB PO PRN (08:56)
--- NOTE | 2021-01-20 09:14 | Palliative Care Consultation ---
Date of Consultation January 20, 2021 Assessment & Plan (1) Palliative care encounter: This female patient is a 70 year old female who presented to the [facility] with abdominal pain. She is known to our palliative service from an inpatient admission back in October. Upon discharge she did see Dr. Nicole for outpatient palliative services, more peripherally since she was receiving the most of her care in [place]. She has a PMH that includes metastatic breast cancer with metastasis to bone and brain. She was recently discharged from [facility] under the care of Dr. Schultz. She was taking Abemaciclib and Fulvestrant back in October 2021, but is now taking Everolimus and is under the care of Dr. Martins, in addition to providers in [place]. ll bowel obstruction, but no metastasis. An NGT was inserted to provide bowel rest. A KUB that was done on 10/30 shows resolution of the SBO and the NGT has been removed and she is tolerating advancing her diet, with some intermittent nausea. Overall, the patient does complain of radicular pain and has been prescribed Fentanyl patch and oral narcotics. Palliative care was consulted to discuss goals of care and assist with pain and symptom management. I met with the patient in room 360. She was weak and deconditioned. Her and son were in the hallway and we were able to talk at length. They mentioned that she lives at home with her , son, daughter in law, and two grandchildren. Primarily, the has been the caregiver, but her care needs have increased and has become more difficult to manage. She is currently being followed by [facility] home health and we discussed a more conservative approach with Hospice. They are not sure how the care she is receiving now with home health would be any different with hospice. We discussed respite care, comfort care, and transition to SNF for hospice care. I suggested that they talk with a hospice liason to have more of their questions answered. Mag Long in case management was going to talk with [facility] Hospice Liason, Kelby, who will reach out to the family. I certainly would support her being on hospice; whether at home or at a SNF depending on the family wishes. We discussed her code status and with new discovery of PE think it is important to have this discussion. I tried to see the patient to discuss this, but she was very tired and unable to have the conversation. I discussed with her son and . They do understand the gravity of her illness and think they would like a more conservative approach, but would like to discuss internally as a family. For now, she will remain a full code. Palliative care will follow to discuss further. (2) Malignant neoplasm of breast metastatic to bone: Sees Dr. Schultz with [facility]. Was recently admitted. On Everolimus. (3) Weakness: (4) Acute hypokalemia: K+ 2.5 today. Having increased diarrhea. K+ riders for replacement. (5) Pulmonary emboli: New on CT today. On Heparin gtt. On room air and in no apparent respiratory distress. Acute cor pulmonale presence: unspecified Chronicity: acute Pulmonary embolism type: unspecified Qualified Code(s): I26.99 - Other pulmonary embolism without acute cor pulmonale (6) Pain: cancer related pain. Currently on the following medications for management: 1. Fentanyl 50mcg TD Q3d 2. Dilaudid 4mg IV Q 3 PRN. She has received 4 doses over the past 24 hours. 3. Lidoderm patch Family asked that we come back tomorrow to address any increased pain or symptom needs as she was very tired. Appears comfortable from a pain standpoint. May benefit from increasing Fentanyl patch to 75mcg to decrease IV breakthrough use. (7) Diarrhea: CT a/p review by me on 01/18. Grossly distended colon with higher stool burden noted. she has been having back and forth constipation and diarrhea. Today, more liquid diarrhea. Requiring electrolyte replacement. Relistor added today. (8) Constipation: History of Present Illness Reason for Consultation: Goals of Care Requesting Physician: Dr. Shay Best Attending Physician: Shay Best MD History of Present Illness This female patient is a 70 year old female who presented to the [facility] with abdominal pain. She is known to our palliative service from an inpatient admission back in October. Upon discharge she did see Dr. Nicole for outpatient palliative services, more peripherally since she was receiving the most of her care in [place]. She has a PMH that includes metastatic breast cancer with metastasis to bone and brain. She was recently discharged from [facility] under the care of Dr. Schultz. She was taking Abemaciclib and Fulvestrant back in October 2021, but is now taking Everolimus and is under the care of Dr. Martins, in addition to providers in [place]. ll bowel obstruction, but no metastasis. An NGT was inserted to provide bowel rest. A KUB that was done on 10/30 shows resolution of the SBO and the NGT has been removed and she is tolerating advancing her diet, with some intermittent nausea. Overall, the patient does complain of radicular pain and has been prescribed Fentanyl patch and oral narcotics. Palliative care was consulted to discuss goals of care and assist with pain and symptom management. Please see A/P for further details. Thanks for r-involving palliative care with this unfortunate individual. Allergies Allergy/AdvReac Type Severity Reaction Status Date / Time lactose Allergy Unknown Gastrointestinal Verified 01/18/21 15:26 Upset pork derived (porcine) Allergy Unknown CULTURE Verified 01/18/21 15:26 ISSUES Pork/Porcine Containing Allergy Unknown CULTURE Verified 01/18/21 15:26 Products ISSUES gluten AdvReac Intermediate Gastrointestinal Verified 01/18/21 15:26 Upset tramadol AdvReac Intermediate itching, Verified 01/18/21 15:26 stomach ache, gas and nausea & no appetite. grapefruit AdvReac Unknown Unknown Verified 01/18/21 15:26 Home Medications Medication Instructions Recorded Confirmed Type pantoprazole [Protonix] 40 mg PO QAM #30 tab 11/02/20 01/18/21 Rx losartan 25 mg tablet 25 mg PO QDL #90 tab 11/04/20 01/18/21 Rx lactulose 20 g PO BID #1500 ml 11/06/20 01/18/21 Rx fentanyl 1 patch TOPICAL Q3D 12/08/20 01/18/21 History lidocaine 1 patch TOPICAL DAILY 12/08/20 01/18/21 History prochlorperazine maleate 10 mg PO Q6H PRN 12/08/20 01/18/21 History acetaminophen [Tylenol] 650 mg PO Q6H PRN 01/18/21 01/18/21 History bisacodyl 10 mg AR QPM 01/18/21 01/18/21 History dexamethasone 4 mg PO BID 01/18/21 01/18/21 History docusate sodium 100 mg PO BID 01/18/21 01/18/21 History everolimus (antineoplastic) 7.5 mg PO HS 01/18/21 01/18/21 History hydromorphone [Dilaudid] 2 - 6 mg PO Q3H PRN 01/18/21 01/18/21 History lorazepam 0 mg PO TID PRN 01/18/21 01/18/21 History melatonin 3 mg PO HS 01/18/21 01/18/21 History memantine See Rx Instructions .ROUTE .COMPLEX 01/18/21 01/18/21 History mirtazapine 15 mg PO HS 01/18/21 01/18/21 History nystatin 1 applic TOPICAL BID PRN 01/18/21 01/18/21 History olanzapine 5 mg PO HS 01/18/21 01/18/21 History ondansetron 4 mg PO AC 01/18/21 01/18/21 History phenyleph-shark zru-kexs-htv 1 applic AR QID PRN 01/18/21 01/18/21 History [Preparation H] polyethylene glycol 3350 [Miralax] 17 g PO DAILY PRN 01/18/21 01/18/21 History sennosides [senna] 17.2 mg PO HS PRN 01/18/21 01/18/21 History Patient History Medical History (Updated 01/20/21 @ 18:01 by KATHLEEN Dennis) Carcinoma of central portion of right breast in female, estrogen receptor positive (08/30/17) Constipation Constipation Diarrhea Dyslipidemia Fever Hyperlipidemia Hypertension Hypertension Malignant neoplasm of bone Metastatic breast cancer Osteoporosis Pain Palliative care encounter Surgical History H/O colonoscopy History of 2 sections History of hemorrhoidectomy History of hysterectomy History of lumpectomy Family History Father Hypertension Myocardial infarction Mother Heart disease Malignant neoplasm of gallbladder Sister Cervical cancer Other Cancer Denies family history of Ovarian cancer Prostate cancer Breast cancer Colorectal cancer Social History Smoking Status: Unknown if ever smoked Hx Substance Use: No Preferred Language: Indonesian Communication Ability: Effective Communication Tools: Other Visual Impairment: No Limitations Hearing Ability: Normal Cardiac Cath Tech Required: Yes Beliefs That Will Affect Care: Spiritual Spiritual Healthcare Practices: Belief in god. marital status: Current Living Situation: Spouse Feels Safe at Home: Yes Childhood Exposure to Second-Hand Smoke: No Dental Care, Regularly: Yes Assistive Devices: None Review of Systems Review of Systems: [place] System Assessment Scale: Tiredness: 2/3 Shortness of breath: 1/3 Lack of Appetite: 1/3 Nausea: 0/3 Palliative Performance Scale: 30% Physical Exam Constitutional: + ill appearing and cooperative Respiratory: + respiratory distress Auscultation: + diminished lung sounds Cardiovascular: Rate/Rhythm: regular rate and regular rhythm Heart Sounds: normal S1 and normal S2 Extremities: normal capillary refill Gastrointestinal (Abdomen): normal bowel sounds, soft, nontender, no hepatosplenomegaly Inspection/Auscultation: + hyperactive bowel sounds Skin: + pallor Psychiatric: A+Ox3, euthymic affect Insight: + limited insight Judgement: + limited judgement Results & Data ([facility]) Vital Signs (Past 12 Hours) Vital Signs Temp Pulse Resp BP Pulse Ox 01/20/21 07:42 36.8 C 88 16 107/66 97 01/20/21 02:14 36.8 C 94 H 14 126/69 97 PG Care Time/CCT Total # of Minutes Spent Total Time Spent with Patient: Total time spent is greater than 50% in coordination of care (as documented) at patient's floor/unit and/or counseling patient: 70 minutes with > 50% of that time spent assessing the patient, discussing goals of care with family, and collaborating with IDT Coding Level of Care Code 15907 Inpt Consult Level 3 Diagnoses Palliative care encounter Z51.5 Malignant neoplasm of breast metastatic to bone C50.919; C79.51 Weakness R53.1 Acute hypokalemia E87.6 Pulmonary emboli I26.99 Acute cor pulmonale presence: unspecified Chronicity: acute Pulmonary embolism type: unspecified Pain R52 Diarrhea R19.7 Constipation K59.00 Time Spent (min) 70
[2021-01-20] MEDS: POTASSIUM CHLORIDE 40 MEQ in SODIUM CHLORIDE 0.9% 1000ML 1,000 ML IV SCH (09:55)
[2021-01-20] MEDS: LOSARTAN POTASSIUM 25 MG TAB PO SCH (10:16)
[2021-01-20] MEDS: HEPARIN SODIUM/DEXTROSE 25,000 UNITS/500 ML BAG IV SCH (16:26)
[2021-01-20] MEDS: BUTT PASTE (ZINC OXIDE 16%) 171 APPLN/57 GM JAR EXT SCH ×2 (17:51→21:01)
--- NOTE | 2021-01-20 20:24 | Hospitalist Progress Note ---
Date of Service January 20, 2021 Assessment & Plan (1) Malignant neoplasm of breast metastatic to bone: End stage, Stage IV breast cancer with metastatic disease to brain and bone. Was recently discharged from a [facility] hospital. - Continue home everolimus 7.5 mg PO daily - Discussed with Dr. Schultz's central office trouble shooter on 01/20 -> In theory, they would offer her more chemo if her ECOG scores improve. This is to say, they would return to prior treatments such as carboplatin or paclitaxel to see if they can general any further response. No known clinical trials or immunotherapy that the RN was aware of. - Palliative care consulted - Family understands that her cancer is advancing. They will spend some time considering her code status and hospice referral. (2) Constipation: CT a/p review by me on 01/18. Grossly distended colon, though no distal blockage. Higher stool burden is likely causing overflow diarrhea. - Aggressive upper bowel regimen in hopes of loosening higher stool. - Added Relistor to try to improve GI motility in the face of high opiate needs (3) Pulmonary embolism: PE incidentally noted on CT a/p on 01/18. No present symptoms. - Heparin gtt initiated by the ED. - CTA chest on 01/18 did not show any further clot burden. - TTE ordered, but not read yet. Given small clot burden, not likely to change management administrator. (4) Hypertension: BP presetnly 140/85. - Continue home losartan Admission and Anticipated Discharge Date Admission Date: January 18, 2021 Subjective Very irritated bottom today from the liquid diarrhea. Still with copious liquid stool. Alos having back pain. Reports no fevers/chills, chest pain, shortness of breath, abdominal pain, nausea, or vomiting. Physical Exam Constitutional: + acute distress Eyes: EOM intact bilaterally; no conjunctival abnormality ENMT: external ear and nose normal, oropharynx normal Neck: trachea midline, no thyromegaly normal visual inspection Respiratory: normal respiratory effort, lungs clear to auscultation no respiratory distress Cardiovascular: RRR, no murmur, no edema Gastrointestinal (Abdomen): Inspection/Auscultation: abdomen normal to inspection; abdomen not distended Skin: no rashes, warm and dry Neurologic: awake; + does not move all extremities (No left leg movement) Speech / Cognition: + abnormal cognition (Very slow responses.) Psychiatric: Orientation: alert, oriented to person and cooperative Results & Data Results & Data ([facility]) Vital Signs (Past 12 Hours) Vital Signs Temp Pulse Resp BP Pulse Ox 01/20/21 15:27 36.5 C 95 H 18 143/86 H 96 PG Care Time/CCT Total # of Minutes Spent Total Time Spent with Patient: Total time spent is greater than 50% in coordination of care (as documented) at patient's floor/unit and/or counseling patient: Coding Level of Care Code 04900 Subseq Hosp Care Lvl 2 Diagnoses Malignant neoplasm of breast metastatic to bone C50.919; C79.51 Constipation K59.00 Pulmonary embolism I26.99 Hypertension I10 Hypertension type: essential hypertension (1) Hypertension Hypertension type: essential hypertension Qualified Code(s): I10 - Essential (primary) hypertension
[2021-01-20] MEDS: MELATONIN 3 MG TAB PO SCH (21:01)
[2021-01-20] MEDS: OLANZapine 5 MG TABLET PO SCH (21:02)
[2021-01-20] MEDS: MIRTAZAPINE TAB 15 MG TAB PO SCH (21:02)
[2021-01-20] MEDS: bisacodyL 10 MG SUPP PR SCH (21:04)
[2021-01-20] MEDS: LIDOCAINE 5% 1 PATCH TD SCH (21:04)
[2021-01-21] MEDS: POTASSIUM CHLORIDE 40 MEQ in SODIUM CHLORIDE 0.9% 1000ML 1,000 ML IV SCH (05:22)
[2021-01-21] MEDS: HEPARIN SODIUM/DEXTROSE 25,000 UNITS/500 ML BAG IV SCH (05:22)
[2021-01-21] MEDS: BUTT PASTE (ZINC OXIDE 16%) 171 APPLN/57 GM JAR EXT SCH ×4 (08:16→23:22)
[2021-01-21] MEDS: CHECK fentaNYL PATCH PLACEMENT SCH ×2 (08:16→15:34)
[2021-01-21] MEDS: HYDROmorphone HCL 2 MG TAB PO PRN ×2 (08:17→16:54)
[2021-01-21] MEDS: EVEROLIMUS 7.5 MG PO SCH (08:29)
[2021-01-21] MEDS: PANTOprazole 40 MG TAB PO SCH (08:31)
[2021-01-21] MEDS: LACTULOSE SYRUP 30 GM/45 ML UDP PO SCH ×2 (08:31→13:38)
[2021-01-21] MEDS: DOCUSATE SODIUM 100 MG CAP PO SCH (08:35)
[2021-01-21] MEDS: POLYETHYLENE (MIRALAX) 17 GM PACK PO SCH (08:35)
[2021-01-21 09:21] LABS: Basophils # (auto) 0.01 K/uL (0-0.2); Basophils % (auto) 0.2 %; Eosinophils # (auto) 0.03 K/uL (0-0.5); Eosinophils % (auto) 0.7 %; Hematocrit (blood only) 36.4 % (37-47); Hemoglobin 12.6 g/dL (12.0-16.0); Immature Granulocytes # (auto) 0.03 K/uL (0.00-0.02); Immature Granulocytes % (auto) 0.7 %; Lymphocytes # (auto) 0.45 K/uL (1.2-3.4); Lymphocytes % (auto) 9.8 %; Mean Corpuscular Hemoglobin 30.5 pg (25-34); Mean Corpuscular Volume 88.1 fL (80-100); Mean Platelet Volume 8.6 fL (7.4-10.4); Monocytes % (auto) 6.6 %; Neutrophils # (auto) 3.75 K/uL (1.4-6.5); Platelet Count 185 K/uL (130-400); RDW Coefficient of Variation 13.2 % (11.5-14.5); RDW Standard Deviation 42.3 fL (36.4-46.3); Red Blood Count 4.13 M/uL (4.2-5.4); White Blood Count 4.57 K/uL (4.8-10.8)
[2021-01-21 09:42] LABS: Partial Thromboplastin Ratio 1.8
[2021-01-21 09:44] LABS: BUN Creatinine Ratio 9.4 (10-20); Calcium 7.1 mg/dl (8.5-10.1); Creatinine Clr Calc Pharmacy 190.7 ml/min; Est GFR (African American) 144.8; Est GFR (Non-African American) 124.9; Magnesium 2.4 mg/dl (1.8-2.4); Potassium 4.4 mmol/L (3.5-5.1)
[2021-01-21 10:00] LABS: Partial Thromboplastin Time 47.8 Seconds (21.0-31.0)
[2021-01-21 10:12] LABS: Mean Corpuscular Hgb Conc 34.6 g/dL (32-36)
[2021-01-21] MEDS: LOSARTAN POTASSIUM 25 MG TAB PO SCH (12:52)
[2021-01-21] MEDS ORDERED: LORazepam 0.5 MG TAB PO PRN (15:17)
[2021-01-21] MEDS: METHYLNALTREXONE BROMIDE 12 MG/0.6 ML VIAL SQ SCH (15:24)
[2021-01-21] MEDS: APIXABAN 5 MG TABLET PO SCH (16:51)
--- NOTE | 2021-01-21 17:33 | Palliative Care Progress Note ---
Date of Service January 21, 2021 Assessment & Plan (1) Pain: Reasonable control on current medications. She is followed by [facility] palliative and home care at this time. Family is comfortable with them managing her medications at home. (2) Constipation: Improved with relistor. Monitor on bowel regimen. (3) Anxiety: She has had ongoing problems with anxiety. Her is concerned about her level of anxiety and is asking if lorazepam can be increased to every six hours as needed. Will change frequency of dosing (4) Palliative care encounter: I spoke with Maritza's son, Alonzo, on the phone. They have been deferring to him for planning discussions. He met with hospice passenger relations representative but is still unsure about what best plan is for their family. He tells me that they are all very much aware of her prognosis and want comfort to be a focus. They will need to talk about whether they are comfortable with stopping hormonal therapy. He had some questions about the differences between hospice and palliative care that I addressed. He feels that they need to discuss this further as a family and will likely continue with [facility] home care with transition to hospice when they are ready. (5) Malignant neoplasm of breast metastatic to bone: Admission and Anticipated Discharge Date Admission Date: January 18, 2021 Subjective Very weak. Awake. Answers questions. She reports that pain "is only a little". She has had one dose of prn hydromorphone today. She has also had lorazepam for anxiety. Review of Systems Review of Systems: [place] symptom Assessment Scale Pain1/3 Dyspnea 0/3 Anxiety 1/3 Nausea 0/3 Anorexia 2/3 LBM today Palliative Performance Score 30% Physical Exam Constitutional: + frail appearing; no acute distress Respiratory: normal respiratory effort; no labored breathing Neurologic: awake Psychiatric: Affect: + anxious affect Results & Data ([facility]) Vital Signs (Past 12 Hours) Vital Signs Temp Pulse Resp BP Pulse Ox 01/21/21 14:49 98.1 F 96 H 16 117/78 97 01/21/21 07:37 97.7 F 89 16 113/75 97 PG Care Time/CCT Total # of Minutes Spent Total Time Spent with Patient: Total time spent is greater than 50% in coordi nation of care (as documented) at patient's floor/unit and/or counseling patient: Total time spent 40 min with more than 50% of time spent on hospice and symptom management education, symptom management, goals of care. Coding Level of Care Code 18578 Subseq Hosp Care Lvl 3 Diagnoses Pain R52 Constipation K59.00 Anxiety F41.9 Palliative care encounter Z51.5 Malignant neoplasm of breast metastatic to bone C50.919; C79.51
--- NOTE | 2021-01-21 20:09 | Hospitalist Progress Note ---
Date of Service January 21, 2021 Assessment & Plan (1) Malignant neoplasm of breast metastatic to bone: Progressive stage IV breast cancer with metastatic disease to brain and bone. Was recently discharged from [facility] on January 09 after month-long stay. The brain mets were discovered then. She had developed severe weakness of both legs leading to the discovery of the brain mets. Remains on home everolimus 7.5 mg PO daily. Functional status is very poor, she has lost 9kg of weight since November 05, she has failure to thrive with severe back pain/abd pain, and she has confusion. Pushing further with chemotherapy would be nearly impossible at this point. Agree with palliative care/hospice. Restart IV decadron 4mg BID - should help bone pain, and needs this also because of brain mets. Cut back bowel regimen due to loose stools. Stop IV heparin (see below). Ok to skip blood draws at her request. Home with hospice once pain is tolerable and bowels are satisfactory and/or when family is ready to have her home. (2) Pulmonary embolism: PE incidentally noted on CT a/p on 01/18. Heparin drip started then. Stop heparin drip. D/c PTTs. Start eliquis 10mg BID x 1 week then 5mg BID thereafter. (3) Brain metastases: Dx 12/2020. Resume steroids. Likely cause of leg weakness. (4) Constipation: stop relistor. continue with senna prn, miralax daily, and dulcolax daily. stop lactulose. (5) Hypertension: transitioning soon to hospice/palliative - stop ARB (6) Paraplegia: acquired 2nd to brain mets or lumbar spine mets (or both) (7) Hyponatremia: SIADH due to brain mets? (8) Severe protein-calorie malnutrition: this will worsen further in light of advanced cancer (9) Encephalopathy: likely multifactorial - brain mets, narcotics, bowel issues, other olanzapine 5mg HS and son extensively updated today very poor prognosis Admission and Anticipated Discharge Date Admission Date: January 18, 2021 Subjective patient with multiple complaints during the visit including - * liquid stools * back pain * abd pain * anxiety * not wanting blood draws any more was at bedside he reminded us that she takes ativan prn at home for anxiety shortly after I started my visit with her the pt's called their son the son was on speaker for most of the visit son stated that at this point their goal for Mrs Carbajal is for her to be comfortable Once her bowels are regulated they would like to get her home - potentially with hospice son confirmed he had spoken with Becca Mejia from palliative about hospice they realize she is declining quickly son recounted her month long stay at [facility] was dx with brain mets received whole brain radiation released on January 09 to home she can no longer ambulate due to b/l leg weakness Review of Systems Respiratory: no cough and no dyspnea Cardiovascular: no chest pain Gastrointestinal: + abdominal pain and + diarrhea/loose stools; no nausea Musculoskeletal: + back pain Neurologic: + localized weakness Psychiatric: + depression, + abnormal sleep pattern and + anxiety Physical Exam Constitutional: + acute distress, + ill appearing, + thin, + altered mental status and + frail appearing; + not well developed and + not well nourished Eyes: + no PERRL (pupils assymetric ) ENMT: Mouth: + dry oral mucous membranes Respiratory: normal respiratory effort, lungs clear to auscultation Cardiovascular: Rate/Rhythm: regular rate and regular rhythm Heart Sounds: normal S1 and normal S2 Vessels: posterior tibial pulses present and dorsalis pedis pulses present; no JVD Extremities: + edema Gastrointestinal (Abdomen): Inspection/Auscultation: + abdomen distended; + abnormal bowel sounds Percussion/Palpation: + abdomen tender (central abdomen and epigastric region ) Neurologic: + focal motor deficit (b/l legs ) Psychiatric: Orientation: alert, oriented to person and oriented to place; + not oriented to time Affect: + tearful affect and + labile affect Results & Data Results & Data ([facility]) Vital Signs (Past 12 Hours) Vital Signs Temp Pulse Resp BP Pulse Ox 01/21/21 14:49 36.7 C 96 H 16 117/78 97 Laboratory Results Laboratory Results - last 24 hr 01/21/21 01/21/21 01/21/21 09:08 09:08 09:08 WBC 4.57 L RBC 4.13 L Hgb 12.6 Hct 36.4 L MCV 88.1 MCH 30.5 MCHC 34.6 RDW Std Deviation 42.3 RDW Coeff of Sarah 13.2 Plt Count 185 MPV 8.6 Immature Gran % (Auto) 0.7 Neut % (Auto) 82.0 Lymph % (Auto) 9.8 [place] % (Auto) 6.6 Eos % (Auto) 0.7 Baso % (Auto) 0.2 Neut # (Auto) 3.75 Lymph # (Auto) 0.45 L [place] # (Auto) 0.30 Eos # (Auto) 0.03 Baso # (Auto) 0.01 Immature Gran # (Auto) 0.03 H APTT 47.8 H* PTT Ratio 1.8 Sodium 132 L Potassium 4.4 Chloride 106 Carbon Dioxide 24 Anion Gap 2.0 L BUN 2 L Creatinine 0.25 L Est Cr Clr Drug Dosing 190.7 Est GFR ( Amer) 144.8 Est GFR (Non-Af Amer) 124.9 BUN/Creatinine Ratio 9.4 L Glucose 145 H Calcium 7.1 L Magnesium 2.4 Stl C. diff Tox B Gene 01/21/21 13:15 WBC RBC Hgb Hct MCV MCH MCHC RDW Std Deviation RDW Coeff of Sarah Plt Count MPV Immature Gran % (Auto) Neut % (Auto) Lymph % (Auto) [place] % (Auto) Eos % (Auto) Baso % (Auto) Neut # (Auto) Lymph # (Auto) [place] # (Auto) Eos # (Auto) Baso # (Auto) Immature Gran # (Auto) APTT PTT Ratio Sodium Potassium Chloride Carbon Dioxide Anion Gap BUN Creatinine Est Cr Clr Drug Dosing Est GFR ( Amer) Est GFR (Non-Af Amer) BUN/Creatinine Ratio Glucose Calcium Magnesium Stl C. diff Tox B Gene Negative Cdiff Gene PG Care Time/CCT Total # of Minutes Spent Total Time Spent with Patient: Total time spent is greater than 50% in coordination of care (as documented) at patient's floor/unit and/or counseling patient: Coding Level of Care Code 66931 Subseq Hosp Care Lvl 3 Diagnoses Malignant neoplasm of breast metastatic to bone C50.919; C79.51 Pulmonary embolism I26.99 Brain metastases C79.31 Constipation K59.00 Hypertension I10 Hypertension type: essential hypertension Paraplegia G82.20 Hyponatremia E87.1 Severe protein-calorie malnutrition E43 Encephalopathy G93.40 (1) Hypertension Hypertension type: essential hypertension Qualified Code(s): I10 - Essential (primary) hypertension
[2021-01-21] MEDS: MELATONIN 3 MG TAB PO SCH ×2 (21:39→23:22)
[2021-01-21] MEDS: MIRTAZAPINE TAB 15 MG TAB PO SCH ×2 (21:40→23:22)
[2021-01-21] MEDS: OLANZapine 5 MG TABLET PO SCH ×2 (21:40→23:23)
[2021-01-21] MEDS: dexAMETHasone 4 MG in SYRINGE 0 ML IV SCH (21:40)
[2021-01-21] MEDS: LIDOCAINE 5% 1 PATCH TD SCH ×2 (21:40→23:22)
[2021-01-21] MEDS: bisacodyL 10 MG SUPP PR SCH (23:22)
[2021-01-22] MEDS: BUTT PASTE (ZINC OXIDE 16%) 171 APPLN/57 GM JAR EXT SCH ×4 (08:05→23:30)
[2021-01-22] MEDS: APIXABAN 5 MG TABLET PO SCH ×3 (08:05→23:34)
[2021-01-22] MEDS: LORazepam 0.5 MG TAB PO PRN ×2 (08:05→15:05)
[2021-01-22] MEDS: CHECK fentaNYL PATCH PLACEMENT SCH ×3 (08:05→15:05)
[2021-01-22] MEDS: dexAMETHasone 4 MG in SYRINGE 0 ML IV SCH ×2 (08:06→22:38)
[2021-01-22] MEDS: PANTOprazole 40 MG TAB PO SCH (08:06)
[2021-01-22] MEDS: POLYETHYLENE (MIRALAX) 17 GM PACK PO SCH (08:06)
[2021-01-22] MEDS: EVEROLIMUS 7.5 MG PO SCH (08:07)
[2021-01-22] MEDS: HYDROmorphone HCL 2 MG TAB PO PRN ×2 (11:20→15:05)
[2021-01-22] MEDS: SENNA 8.6 MG TAB PO PRN (15:05)
[2021-01-22] MEDS ORDERED: NALOXONE HCL 0.4 MG/1 ML VIAL/CARP IV PRN (16:19)
[2021-01-22] MEDS: SODIUM CHLORIDE 0.9% 1000ML 1,000 ML IV SCH (17:18)
[2021-01-22] MEDS: HYDROmorphone PCA 30 MG/30 ML IV PRN ×2 (17:18→19:08)
[2021-01-22] MEDS: LORazepam 0.5 MG/1 ML VIAL IV SCH (22:37)
[2021-01-22] MEDS: MIRTAZAPINE TAB 15 MG TAB PO SCH ×2 (22:39→23:34)
[2021-01-22] MEDS: OLANZapine 5 MG TABLET PO SCH ×2 (22:39→23:34)
--- NOTE | 2021-01-22 22:43 | Hospitalist Progress Note ---
Date of Service January 22, 2021 Assessment & Plan (1) Malignant neoplasm of breast metastatic to bone: Progressive stage IV breast cancer with metastatic disease to brain and bone. Was recently discharged from [facility] on January 09 after month-long stay. The brain mets were discovered then. She had developed severe weakness of both legs leading to the discovery of the brain mets. Remains on home everolimus 7.5 mg PO daily. Functional status is very poor, she has lost 9kg of weight since November 05, she has failure to thrive with severe back pain/abd pain, and she has confusion. Pushing further with chemotherapy would be nearly impossible at this point. Agree with palliative care/hospice. Pain is ongoing issue despite fentanyl patch 50mcg q72h and dilaudid prn. She feels at times that when she is in pain or has other needs we are not getting to her fast enough but the staff have indeed been diligent in meeting her needs. To that end will place on dilaudid RECESSING MACHINE OPERATOR; no basal for now; bolus 0.2mg q15min. Adjust as needed. Told that many times hospice can continue RECESSING MACHINE OPERATOR pumps at home; she would need secure IV for such. Cont decadron IV. Agree w/ - will schedule ativan at HS for sleep/anxiety. (2) Pulmonary embolism: PE incidentally noted on CT a/p on 01/18. day #2 of eliquis 10mg BID x 1 week then 5mg BID thereafter. (3) Brain metastases: cont steroids. Likely cause of leg weakness. (4) Constipation: stopped relistor. continue with senna prn, miralax daily, and dulcolax daily. stopped lactulose - this was causing gaseous distension and loose stools. (5) Hypertension: transitioning soon to hospice/palliative - stop ARB (6) Paraplegia: acquired 2nd to brain mets or lumbar spine mets (or both) (7) Hyponatremia: SIADH due to brain mets? (8) Severe protein-calorie malnutrition: this will worsen further in light of advanced cancer (9) Encephalopathy: likely multifactorial - brain mets, narcotics, bowel issues, other olanzapine 5mg HS and son extensively updated yesterday again updated today at bedside very poor prognosis Admission and Anticipated Discharge Date Admission Date: January 18, 2021 Subjective upon entering room was present at bedside. patient looked at me, smiled, and said "Good morning." within a few seconds she was in tears, stating last night she was cold and couldn't pull the blankets up. she couldn't find the call phelan to call for the staff and she laid in bed cold for a period of time. she was scared last night and lonely. she kept saying to me and her "don't leave me, I will pay for caregivers". she c/o back pain and abdominal pain. despite such the nursing flowsheets indicate she had 100% of lunch? thinks she needs ativan at bedtime to help her sleep. she denies any dyspnea. very anxious today and very, very tearful. reports confusion, but at the same time she knows my name, knows the name of her medications, etc. Review of Systems Constitutional: + fatigue and + weakness; no fever Respiratory: no cough and no dyspnea Cardiovascular: no chest pain Gastrointestinal: + abdominal pain and + nausea Musculoskeletal: as per Subjective / HPI and + back pain Neurologic: + localized weakness (legs - no change ) Physical Exam Constitutional: + ill appearing, + thin and + frail appearing; + not well developed and + not well nourished tearful, anxious ENMT: Mouth: + dry oral mucous membranes Respiratory: normal respiratory effort, lungs clear to auscultation Cardiovascular: Rate/Rhythm: regular rhythm and + tachycardic Heart Sounds: normal S1 and normal S2 Vessels: posterior tibial pulses present and dorsalis pedis pulses present; no JVD Extremities: + edema Gastrointestinal (Abdomen): Inspection/Auscultation: + abdomen distended and + high-pitched sounds Percussion/Palpation: + abdomen tender (central abdomen and epigastric region ); no guarding Neurologic: + focal motor deficit (b/l legs ) Psychiatric: Orientation: alert, oriented to person and oriented to place Affect: + anxious affect, + tearful affect and + labile affect Thought Content: + phobias Results & Data Results & Data ([facility]) Vital Signs (Past 12 Hours) Vital Signs Temp Pulse Resp BP Pulse Ox 01/22/21 22:40 36.5 C 103 H 14 111/69 96 01/22/21 17:19 36.7 C 94 H 16 113/82 97 01/22/21 16:19 36.7 C 98 H 16 111/54 L 97 01/22/21 14:46 36.5 C 105 H 18 108/71 96 PG Care Time/CCT Total # of Minutes Spent Total Time Spent with Patient: Total time spent is greater than 50% in coordination of care (as documented) at patient's floor/unit and/or counseling patient: Coding Level of Care Code 22143 Subseq Hosp Care Lvl 2 Diagnoses Malignant neoplasm of breast metastatic to bone C50.919; C79.51 Pulmonary embolism I26.99 Brain metastases C79.31 Constipation K59.00 Hypertension I10 Hypertension type: essential hypertension Paraplegia G82.20 Hyponatremia E87.1 Severe protein-calorie malnutrition E43 Encephalopathy G93.40 (1) Hypertension Hypertension type: essential hypertension Qualified Code(s): I10 - Essential (primary) hypertension
[2021-01-22] MEDS: bisacodyL 10 MG SUPP PR SCH (23:30)
[2021-01-22] MEDS: MELATONIN 3 MG TAB PO SCH (23:31)
[2021-01-22] MEDS: LIDOCAINE 5% 1 PATCH TD SCH (23:32)
[2021-01-23] MEDS: CHECK fentaNYL PATCH PLACEMENT SCH ×3 (01:53→09:03)
[2021-01-23] MEDS: fentaNYL 50 MCG/HR TDSY TD SCH ×2 (01:55→13:24)
[2021-01-23] MEDS: BUTT PASTE (ZINC OXIDE 16%) 171 APPLN/57 GM JAR EXT SCH ×6 (02:51→23:54)
[2021-01-23] MEDS: HYDROmorphone PCA 30 MG/30 ML IV PRN ×2 (06:56→18:57)
[2021-01-23] MEDS: APIXABAN 5 MG TABLET PO SCH ×2 (08:53→22:58)
[2021-01-23] MEDS: PANTOprazole 40 MG TAB PO SCH (08:53)
[2021-01-23] MEDS: dexAMETHasone 4 MG in SYRINGE 0 ML IV SCH ×2 (08:53→20:45)
[2021-01-23] MEDS: EVEROLIMUS 7.5 MG PO SCH (08:54)
[2021-01-23] MEDS: POLYETHYLENE (MIRALAX) 17 GM PACK PO SCH (08:55)
--- NOTE | 2021-01-23 19:57 | Hospitalist Progress Note ---
Date of Service January 23, 2021 Assessment & Plan (1) Malignant neoplasm of breast metastatic to bone: Progressive stage IV breast cancer with metastatic disease to brain and bone. Question of liver mets on imaging this admission as well. Was recently discharged from [facility] on January 09 after month-long stay. The brain mets were discovered then. She had developed severe weakness of both legs leading to the discovery of the brain mets. Remains on home everolimus 7.5 mg PO daily. Functional status is very poor, she has lost 9kg of weight since November 05, she has failure to thrive with severe back pain/abd pain, and she has confusion. Pushing further with chemotherapy would be nearly impossible at this point. Agree with home hospice at discharge. , son and patient seem agreeable. Pain is ongoing issue despite fentanyl patch 50mcg q72h and dilaudid prn. HOWEVER, dilaudid TELECOMMUNICATIONS MANAGER initiated yesterday along with IV ativan at HS for sleep and she is much more comfortable today. Continue IV decadron BID (for brain mets and bone pain). Continue Dilaudid TELECOMMUNICATIONS MANAGER - on Sunday the palliative care team can assist with this and determine if this is something she can have at home. Continue ativan prn and scheduled ativan HS. Continue other palliative measures. (2) Pulmonary embolism: PE incidentally noted on CT a/p on 01/18. day #3 of eliquis 10mg BID x 1 week then 5mg BID thereafter. if indeed she does go home with hospice then stop anticoagulation. (3) Brain metastases: cont steroids. Likely cause of leg weakness. (4) Constipation: stopped relistor. stopped lactulose due to excess gas/distension. stop daily suppositories. continue with senna and miralax daily. CT abd/pelvis noted at admission - ?proctitis - due to prior radiation? infectious? stercoral colitis? Treat symptoms for now. (5) Hypertension: transitioning soon to hospice/palliative - stopped ARB (6) Paraplegia: acquired 2nd to brain mets or lumbar spine mets (or both) (7) Hyponatremia: SIADH due to brain mets? (8) Severe protein-calorie malnutrition: this will worsen further in light of advanced cancer no specific Rx (9) Encephalopathy: likely multifactorial - brain mets, narcotics, bowel issues, other cont olanzapine 5mg HS patient got much better sleep overnight and mental status is improved today and son updated at bedside plan is hospice at discharge family is trying to secure additional helpers for the home Admission and Anticipated Discharge Date Admission Date: January 18, 2021 Subjective patient has been resting much more comfortably today. slept well with IV ativan at bedtime. pain control is improved with TELECOMMUNICATIONS MANAGER dilaudid - she is able to manipulate the button to deliver the medication. she had one soft bm today. ate a little. no vomiting. main locations of pain -- back, abdomen. during bedside rounds he was nearly smiling the entire time. and son at bedside. Review of Systems Constitutional: + fatigue and + weakness; no fever Respiratory: no dyspnea Cardiovascular: no chest pain Gastrointestinal: + abdominal pain; no excessive flatulence, no constipation and no diarrhea/loose stools Musculoskeletal: + back pain Physical Exam Constitutional: + ill appearing, + thin and + frail appearing; + not well developed and + not well nourished looks much more comfortable than yesterday ENMT: Mouth: + dry oral mucous membranes Respiratory: normal respiratory effort, lungs clear to auscultation Cardiovascular: Rate/Rhythm: regular rhythm and + tachycardic Heart Sounds: normal S1 and normal S2 Vessels: posterior tibial pulses present and dorsalis pedis pulses present; no JVD Extremities: + edema Gastrointestinal (Abdomen): Inspection/Auscultation: + abdomen distended and + high-pitched sounds Percussion/Palpation: abdomen nontender and no guarding Neurologic: + focal motor deficit (b/l legs ) Psychiatric: Orientation: alert, oriented to person and oriented to place affect much more full today Results & Data Results & Data ([facility]) Vital Signs (Past 12 Hours) Vital Signs Temp Pulse Resp BP Pulse Ox 01/23/21 14:49 36.7 C 95 H 17 105/66 95 01/23/21 11:23 36.8 C 98 H 16 104/69 98 PG Care Time/CCT Total # of Minutes Spent Total Time Spent with Patient: Total time spent is greater than 50% in coordination of care (as documented) at patient's floor/unit and/or counseling patient: Coding Level of Care Code 76756 Subseq Hosp Care Lvl 2 Diagnoses Malignant neoplasm of breast metastatic to bone C50.919; C79.51 Pulmonary embolism I26.99 Brain metastases C79.31 Constipation K59.00 Hypertension I10 Hypertension type: essential hypertension Paraplegia G82.20 Hyponatremia E87.1 Severe protein-calorie malnutrition E43 Encephalopathy G93.40 (1) Hypertension Hypertension type: essential hypertension Qualified Code(s): I10 - Essential (primary) hypertension
[2021-01-23] MEDS: LORazepam 0.5 MG/1 ML VIAL IV SCH (20:44)
[2021-01-23] MEDS: bisacodyL 10 MG SUPP PR SCH (22:58)
[2021-01-23] MEDS: MELATONIN 3 MG TAB PO SCH (22:59)
[2021-01-23] MEDS: OLANZapine 5 MG TABLET PO SCH (22:59)
[2021-01-23] MEDS: MIRTAZAPINE TAB 15 MG TAB PO SCH (22:59)
[2021-01-23] MEDS: LIDOCAINE 5% 1 PATCH TD SCH (22:59)
[2021-01-23] MEDS: SODIUM CHLORIDE 0.9% 1000ML 1,000 ML IV SCH (23:42)
[2021-01-24] MEDS: CHECK fentaNYL PATCH PLACEMENT SCH ×3 (00:31→15:49)
[2021-01-24] MEDS: HYDROmorphone PCA 30 MG/30 ML IV PRN (07:18)
[2021-01-24] MEDS: dexAMETHasone 4 MG in SYRINGE 0 ML IV SCH ×2 (08:06→20:22)
[2021-01-24] MEDS: BUTT PASTE (ZINC OXIDE 16%) 171 APPLN/57 GM JAR EXT SCH ×4 (08:06→20:28)
--- NOTE | 2021-01-24 09:19 | Palliative Care Progress Note ---
Date of Service January 24, 2021 Assessment & Plan (1) Pain: Was started on Dilaudid QUALITY TECHNICIAN over the weekend. Dilaudid no continuous basal rate. 0.2 mg bolus with 15 minute lockout. Patient did not have any attempts or injection yesterday on 01/24, but had 1 attempt/1 injection. I talked with the family regarding going home with a QUALITY TECHNICIAN and its benefits. She would have to be on hospice services for QUALITY TECHNICIAN management and would require an ultrasound guided PIV or PICC. Both the and son were not interested in pursuing a QUALITY TECHNICIAN at home at this time. They would like to continue the Fentanyl TD and also oral pills or liquid for pain management. More conversation with family moving forward with goals of care. (2) Constipation: Improved with relistor. Monitor on bowel regimen. Does have fluctuating watery bm's. (3) Anxiety: She has had ongoing problems with anxiety. She is receiving Ativan IV 0.5 mg QHS and also has Atival SL 0.5 mg Q6 PRN. She has utilized one dose this morning. (4) Palliative care encounter: I spoke with Maritza and her at the bedside. We rediscussed code status in the event of cardiac or respiratory arrest and they were both in agreement with transition to DNR/DNI at this time. This was also confirmed and discussed with their son, Alonzo. In speaking with Maritza's , they are leaning towards her returning home with hospice service and supplemental private caregivers that would be arranged 48 hours prior to discharge. I called Alonzo and spoke with him and he would like to be the person discussing the discontinuation of the Everolimus and he plans to discuss this tonight with her, prior to moving forward with Hospice. (5) Malignant neoplasm of breast metastatic to bone: Sees Dr. Schultz with [facility]. Was recently admitted. On Everolimus, family does understand that Everolimus would be discontinued if hospice at home is pursued. Admission and Anticipated Discharge Date Admission Date: January 18, 2021 Subjective Patient pleasant and states her pain feels controlled. Pt denies anxiety and pain at this time. No confusion. at bedside primarily answering questions. See A/P for further details. Review of Systems Review of Systems: [place] symptom Assessment Scale Pain1/3 Dyspnea 0/3 Anxiety 1/3 Nausea 0/3 Anorexia 2/3 LBM today Palliative Performance Score 30% Physical Exam Constitutional: + ill appearing and cooperative Respiratory: + respiratory distress Auscultation: + diminished lung sounds Cardiovascular: Rate/Rhythm: regular rate and regular rhythm Heart Sounds: normal S1 and normal S2 Extremities: normal capillary refill Gastrointestinal (Abdomen): normal bowel sounds, soft, nontender, no hepatosplenomegaly Inspection/Auscultation: + hyperactive bowel sounds Skin: + pallor Psychiatric: A+Ox3, euthymic affect Insight: + limited insight Judgement: + limited judgement Results & Data ([facility]) Vital Signs (Past 12 Hours) Vital Signs Temp Pulse Resp BP Pulse Ox 01/24/21 07:26 36.7 C 90 16 110/63 98 01/24/21 04:02 36.4 C L 100 H 18 110/69 96 01/23/21 22:42 37.3 C 70 14 111/70 98 PG Care Time/CCT Total # of Minutes Spent Total Time Spent with Patient: Total time spent is greater than 50% in coordination of care (as documented) at patient's floor/unit and/or counseling patient: Total time spent 45 minutes with > 50% of that time spent assessing the patient, discussing goals of care with patient, and son, evaluating symptom management needs, and collaborating with IDT Coding Level of Care Code 66729 Subseq Hosp Care Lvl 3 Diagnoses Pain R52 Constipation K59.00 Anxiety F41.9 Palliative care encounter Z51.5 Malignant neoplasm of breast metastatic to bone C50.919; C79.51 Time Spent (min) 45
[2021-01-24] MEDS: APIXABAN 5 MG TABLET PO SCH ×2 (09:25→20:28)
[2021-01-24] MEDS: PANTOprazole 40 MG TAB PO SCH (09:25)
[2021-01-24] MEDS: EVEROLIMUS 7.5 MG PO SCH (09:25)
[2021-01-24] MEDS: SENNA 8.6 MG TAB PO SCH (09:29)
--- NOTE | 2021-01-24 09:58 | Hospitalist Progress Note ---
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 Question of liver mets on imaging this admission as well. Was recently discharged from [facility] [place] on January 09 after month-long stay. The brain mets were discovered then. She had developed severe weakness of both legs leading to the discovery of the brain mets. Remains on home everolimus 7.5 mg PO daily. Functional status is very poor, she has lost 9kg of weight since November 05, she has failure to thrive with severe back pain/abd pain, and she has confusion. Pushing further with chemotherapy would be nearly impossible at this point. Agree with home hospice at discharge. , son and patient seem agreeable. Pain is ongoing issue despite fentanyl patch 50mcg q72h and dilaudid prn. HOWEVER, dilaudid YARN BLEACHING MACHINE OPERATOR initiated 01/12 along with IV ativan at HS for sleep and she is much more comfortable today Continue IV decadron BID (for brain mets and bone pain). Continue Dilaudid YARN BLEACHING MACHINE OPERATOR - on Sunday the palliative care team can assist with this and determine if this is something she can have at home. Continue ativan prn and scheduled ativan HS. Continue other palliative measures. 01/24 Palliative consultation with move to DNR D/c Fentayl patch and continuing YARN BLEACHING MACHINE OPERATOR pump -- to discuss with CM about continuing at discharge on Hospice. Will need to d/c all other life sustaining medications at discharge as transition occurs to hospice at d/c Plans for inpatient until private pay arranged in next 48 hours (2) Pulmonary embolism: PE incidentally noted on CT a/p on 01/18. day #4 of eliquis 10mg BID x 1 week then 5mg BID thereafter. --> Will stop at d/c if on hospice (3) Brain metastases: cont steroids. Likely cause of leg weakness. (4) Constipation: stopped relistor. stopped lactulose due to excess gas/distension. stop daily suppositories. continue with senna and miralax daily. CT abd/pelvis noted at admission - ?proctitis - due to prior radiation? infectious? stercoral colitis? Treat symptoms for now. (5) Hypertension: transitioning soon to hospice/palliative - stopped ARB (6) Paraplegia: acquired 2nd to brain mets or lumbar spine mets (or both) (7) Hyponatremia: SIADH due to brain mets? (8) Severe protein-calorie malnutrition: this will worsen further in light of advanced cancer no specific Rx (9) Encephalopathy: likely multifactorial - brain mets, narcotics, bowel issues, other cont olanzapine 5mg HS patient got much better sleep overnight and mental status is improved today updated at bedside Palliative contacting son to see if YARN BLEACHING MACHINE OPERATOR ok for home -- some reservations from during conversation today plan is hospice at discharge family is trying to secure additional helpers for the home Continued inpatient stay as above Admission and Anticipated Discharge Date Admission Date: January 18, 2021 Subjective Patient evaluated this afternoon. Pain controlled with YARN BLEACHING MACHINE OPERATOR pump, primarily located in back and abdomen. at bedside. Recent conversation with palliative care -- family getting private pay help which may take up to 48 hours. Palliative discussing continuing YARN BLEACHING MACHINE OPERATOR pump at discharge and discontinuing the Fentanyl patches. Questions/concerns addressed at this time. Review of Systems Review of Systems: All systems reviewed & are unremarkable except as noted in HPI & below Physical Exam Constitutional: + ill appearing, + thin, + altered mental status, + frail appearing and cooperative; + not well developed, + not well nourished and no acute distress Eyes: EOM intact bilaterally; no conjunctival abnormality and + no PERRL (pupils assymetric ) ENMT: external ear and nose normal, oropharynx normal Mouth: + dry oral mucous membranes Neck: normal visual inspection Respiratory: normal respiratory effort; no respiratory distress and no labored breathing Auscultation: + diminished lung sounds Cardiovascular: Rate/Rhythm: regular rate and regular rhythm Heart Sounds: normal S1 and normal S2 Vessels: posterior tibial pulses present and dorsalis pedis pulses present; no JVD Extremities: normal capillary refill and + edema Gastrointestinal (Abdomen): normal bowel sounds, soft, nontender, no hepatosplenomegaly Inspection/Auscultation: abdomen normal to inspection, + abdomen distended, + high-pitched sounds and + hyperactive bowel sounds; + abnormal bowel sounds Percussion/Palpation: abdomen nontender and no guarding Skin: no rashes, warm and dry + pallor Neurologic: + focal motor deficit (b/l legs ) and awake; + does not move all extremities (No left leg movement) Speech / Cognition: + abnormal cognition (Very slow responses.) Psychiatric: A+Ox3, euthymic affect Orientation: alert, oriented to person, oriented to place and cooperative; + not oriented to time Insight: + limited insight Judgement: + limited judgement Genitourinary: styles draining yellow urine Results & Data Results & Data ([facility]) Vital Signs (Past 12 Hours) Vital Signs Temp Pulse Resp BP Pulse Ox 01/24/21 07:26 36.7 C 90 16 110/63 98 01/24/21 04:02 36.4 C L 100 H 18 110/69 96 01/23/21 22:42 37.3 C 70 14 111/70 98 PG Care Time/CCT Total # of Minutes Spent Total Time Spent with Patient: Total time spent is greater than 50% in coordination of care (as documented) at patient's floor/unit and/or counseling patient: Coding Level of Care Code 04172 Subseq Hosp Care Lvl 2 Diagnoses Malignant neoplasm of breast metastatic to bone C50.919; C79.51 Pulmonary embolism I26.99 Brain metastases C79.31 Constipation K59.00 Hypertension I10 Hypertension type: essential hypertension Paraplegia G82.20 Hyponatremia E87.1 Severe protein-calorie malnutrition E43 Encephalopathy G93.40 (1) Hypertension Hypertension type: essential hypertension Qualified Code(s): I10 - Essential (primary) hypertension
[2021-01-24] MEDS: LORazepam 0.5 MG TAB PO PRN (10:09)
[2021-01-24] MEDS: POLYETHYLENE (MIRALAX) 17 GM PACK PO SCH (10:10)
[2021-01-24] MEDS: levoFLOXacin 250 MG TABLET PO SCH (17:58)
[2021-01-24] MEDS: LORazepam 0.5 MG/1 ML VIAL IV SCH (20:22)
[2021-01-24] MEDS: LIDOCAINE 5% 1 PATCH TD SCH (20:28)
[2021-01-24] MEDS: MIRTAZAPINE TAB 15 MG TAB PO SCH (20:28)
[2021-01-24] MEDS: MELATONIN 3 MG TAB PO SCH (20:28)
[2021-01-24] MEDS: OLANZapine 5 MG TABLET PO SCH (20:29)
[2021-01-25] MEDS: CHECK fentaNYL PATCH PLACEMENT SCH ×3 (00:03→16:25)
[2021-01-25] MEDS: BUTT PASTE (ZINC OXIDE 16%) 171 APPLN/57 GM JAR EXT SCH ×4 (09:25→20:18)
[2021-01-25] MEDS: dexAMETHasone 4 MG in SYRINGE 0 ML IV SCH ×2 (09:26→20:18)
[2021-01-25] MEDS: SENNA 8.6 MG TAB PO SCH (09:33)
[2021-01-25] MEDS: POLYETHYLENE (MIRALAX) 17 GM PACK PO SCH (09:33)
[2021-01-25] MEDS: PANTOprazole 40 MG TAB PO SCH (09:33)
[2021-01-25] MEDS: APIXABAN 5 MG TABLET PO SCH ×2 (09:33→20:18)
[2021-01-25] MEDS: EVEROLIMUS 7.5 MG PO SCH (09:33)
[2021-01-25] MEDS: LORazepam 0.5 MG TAB PO PRN ×2 (09:53→17:09)
[2021-01-25] MEDS: levoFLOXacin 250 MG TABLET PO SCH (11:48)
--- NOTE | 2021-01-25 14:29 | Hospitalist Progress Note ---
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 Question of liver mets on imaging this admission as well. Was recently discharged from [facility] on January 09 after month-long stay. The brain mets were discovered then. She had developed severe weakness of both legs leading to the discovery of the brain mets. Remains on home everolimus 7.5 mg PO daily -- would d/c at discharge if decision tonight confirming hospice at d/c Functional status is very poor, she has lost 9kg of weight since November 05, she has failure to thrive with severe back pain/abd pain, and she has confusion. Pushing further with chemotherapy would be nearly impossible at this point. Agree with home hospice at discharge. , son and patient seem agreeable --> HOPEFUL FOR DC 01/26 vs 01/27 after son has further discussion with parents this afternoon Pain was ongoing issue despite fentanyl patch 50mcg q72h and dilaudid prn. Dilaudid CONCRETE MIXER OPERATOR initiated 01/12 along with IV ativan at HS for sleep and she is much more comfortable today -- only utilized minimally yesterday but has had five doses for total of 1 mg so far today --> palliative to discuss possible SQ infusions with [facility] hospice to see if this would be a possibility as family would like to avoid IV access/CONCRETE MIXER OPERATOR pump currently CHANGED TO DNR 01/24 For Now: Continue IV decadron BID (for brain mets and bone pain). Continue Dilaudid CONCRETE MIXER OPERATOR, fentanyl patch -- see above Continue ativan prn and scheduled ativan HS. Continue other palliative measures. Decision to be made final tonight about d/c on Hospice. Possible d/c tomorrow vs pending conversation this evening (2) Pulmonary embolism: PE incidentally noted on CT a/p on 01/18. day #5 of eliquis 10mg BID x 1 week then 5mg BID thereafter -- intermittently refusing medications --> plans for d/c at discharge as moves towards comfort (3) Brain metastases: cont steroids. Likely cause of leg weakness. --> also with UTI not tx on admission. (4) Constipation: stopped relistor. stopped lactulose due to excess gas/distension. stop daily suppositories. continue with senna and miralax daily. CT abd/pelvis noted at admission - ?proctitis - due to prior radiation? infectious? stercoral colitis? Treat symptoms for now. (5) Hypertension: transitioning soon to hospice/palliative - stopped ARB (6) Paraplegia: acquired 2nd to brain mets or lumbar spine mets (or both) (7) Hyponatremia: SIADH due to brain mets? (8) Severe protein-calorie malnutrition: this will worsen further in light of advanced cancer no specific Rx (9) Encephalopathy: likely multifactorial - brain mets, narcotics, bowel issues, other UTI not tx on admission, Ecoli in patient with Styles --> changed Styles today. --> Got Levaquin 250mg yesterday, IV Rocephin today and will get third dose tomorrow to complete treatment cont olanzapine 5mg HS patient got much better sleep overnight and mental status is improved today updated at bedside. spoke with son this afternoon plan is probable hospice at discharge family is trying to secure additional helpers for the home Continued inpatient stay as above Admission and Anticipated Discharge Date Admission Date: January 18, 2021 Subjective Patient evaluated at bedside this morning after upset she refused oral ativan. Patient appeared comfortable in bed. Asked about her diagnosis -- explained metastatic disease and role for hospice care given progression. Unclear how much she is actually processing the information and how much possible underlying confusion from both brain mets as well as UTI (being treated) but she was much more conversive and asking questions today about hospice and what that is. states that son will be up this afternoon for further discussion. Pain controlled, non reported. Some redness to buttocks from being in bed. No nausea, fever, chills, chest pain, shortness of breath reported. She is hungry-- requesting cooked cantaloupe. On her tray and feeding currently. Changed styles by RN this AM. Spoke with son at length this evening. He is going up to speak with his mother/father and plan is likely to progress to decision for hospice to be made this evening with hopeful to get her home in the next 24-48 hours given progression and window to get her home is likely slowly closing. Discussed possible SQ pain infusion -- palliative checking into this. Son ok with just using oral medications at discharge if this option not available as he is hesistant for anything further. Questions regarding transportation -- likely to need liter van but will discuss with CM in AM. Continuing to treat UTI but can complete abx tomorrow and would not hold up d/c. Review of Systems Review of Systems: All systems reviewed & are unremarkable except as noted in HPI & below Physical Exam Constitutional: + ill appearing, + thin, + altered mental status, + frail appearing and cooperative; + not well developed, + not well nourished and no acute distress Eyes: EOM intact bilaterally; no conjunctival abnormality and + no PERRL (pupils assymetric ) ENMT: external ear and nose normal, oropharynx normal Mouth: + dry oral mucous membranes Neck: trachea midline, no thyromegaly normal visual inspection Respiratory: normal respiratory effort, lungs clear to auscultation normal respiratory effort; no respiratory distress and no labored breathing Auscultation: + diminished lung sounds Cardiovascular: RRR, no murmur, no edema Rate/Rhythm: regular rate and regular rhythm Heart Sounds: normal S1 and normal S2 Vessels: posterior tibial pulses present and dorsalis pedis pulses present; no JVD Extremities: normal capillary refill and + edema Gastrointestinal (Abdomen): normal bowel sounds, soft, nontender, no hepatosplenomegaly Inspection/Auscultation: abdomen normal to inspection, + abdomen distended, + high-pitched sounds and + hyperactive bowel sounds; + abnormal bowel sounds Percussion/Palpation: abdomen nontender and no guarding Skin: no rashes, warm and dry + pallor Neurologic: + focal motor deficit (b/l legs ) and awake; + does not move all extremities (No left leg movement) Speech / Cognition: + abnormal cognition (Very slow responses.) Psychiatric: Orientation: alert, oriented to person, oriented to place (knows she is in the hospital) and cooperative; + not oriented to time Genitourinary: sytles draining yellow urine Results & Data Results & Data ([facility]) Vital Signs (Past 12 Hours) Vital Signs Temp Pulse Resp BP Pulse Ox 01/25/21 08:39 36.8 C 84 18 129/76 97 PG Care Time/CCT Total # of Minutes Spent Total Time Spent with Patient: Total time spent is greater than 50% in coordination of care (as documented) at patient's floor/unit and/or counseling patient: Coding Level of Care Code 71427 Subseq Hosp Care Lvl 2 Diagnoses Malignant neoplasm of breast metastatic to bone C50.919; C79.51 Pulmonary embolism I26.99 Brain metastases C79.31 Constipation K59.00 Hypertension I10 Hypertension type: essential hypertension Paraplegia G82.20 Hyponatremia E87.1 Severe protein-calorie malnutrition E43 Encephalopathy G93.40 (1) Hypertension Hypertension type: essential hypertension Qualified Code(s): I10 - Essential (primary) hypertension
[2021-01-25] MEDS: SODIUM CHLORIDE 0.9% 1000ML 1,000 ML IV SCH ×2 (15:27→16:26)
[2021-01-25] MEDS ORDERED: cefTRIAXone SODIUM 1,000 MG in DEXTROSE 5% 50 ML IV SCH (16:00)
--- NOTE | 2021-01-25 17:15 | Palliative Care Progress Note ---
Date of Service January 25, 2021 Assessment & Plan (1) Pain: With metastatic breast cancer. She continues on fentanyl patch with dilaudid TOP CASE ASSEMBLER. She has had five doses for total of 1 mg so far today. Per RN she had been c/o pain in her buttocks with pressure. He asked about how to manage this. We talked about barrier cream and repositioning and that its ok to use TOP CASE ASSEMBLER if these do not relieve her pain. He is continuing to consider hospice and tells me that he and his son feel this is the best plan for her but that they would like her input. I suggested that she may not be able to make that decision at this point and that he knows her best and would know what she would want. She has been refusing oral medications at times. We talked about how to manage medications at home. We can give SL opioid and ativan. They will discuss further as a family this evening. Palliative care will follow. Discussed with hospitalist. (2) Palliative care encounter: (3) Malignant neoplasm of breast metastatic to bone: (4) Paraplegia: (5) Pulmonary embolism: (6) Brain metastases: Admission and Anticipated Discharge Date Admission Date: January 18, 2021 Subjective Somnolent. Aroused during conversation with her and smiled and waved at me. She denies pain, asked when she's going home. Review of Systems Review of Systems: Unobtainable due to reduced consciousness Cecil Symptom Assessment Scale Pain 0/3 at present Dyspnea 0/3 Drowsiness 2/3 Palliative Performance Score 20% Physical Exam Constitutional: + thin and + frail appearing ENMT: Mouth: + dry oral mucous membranes Respiratory: normal respiratory effort; no labored breathing Neurologic: lethargic Results & Data ([facility]) Vital Signs (Past 12 Hours) Vital Signs Temp Pulse Resp BP Pulse Ox 01/25/21 15:58 98.1 F 85 16 126/71 96 01/25/21 08:39 98.2 F 84 18 129/76 97 PG Care Time/CCT Total # of Minutes Spent Total Time Spent with Patient: Total time spent is greater than 50% in coordination of care (as documented) at patient's floor/unit and/or counseling patient: Coding Level of Care Code 08376 Subseq Hosp Care Lvl 2 Diagnoses Pain R52 Palliative care encounter Z51.5 Malignant neoplasm of breast metastatic to bone C50.919; C79.51 Paraplegia G82.20 Pulmonary embolism I26.99 Brain metastases C79.31
[2021-01-25] MEDS: LIDOCAINE 5% 1 PATCH TD SCH (20:18)
[2021-01-25] MEDS: MIRTAZAPINE TAB 15 MG TAB PO SCH (20:19)
[2021-01-25] MEDS: OLANZapine 5 MG TABLET PO SCH (20:19)
[2021-01-25] MEDS: MELATONIN 3 MG TAB PO SCH (20:19)
[2021-01-25] MEDS: LORazepam 0.5 MG/1 ML VIAL IV SCH (22:31)
[2021-01-26] MEDS: CHECK fentaNYL PATCH PLACEMENT SCH ×4 (01:55→23:17)
--- NOTE | 2021-01-26 09:12 | Hospitalist Progress Note ---
Date of Service January 26, 2021 Assessment & Plan Admission and Anticipated Discharge Date Admission Date: January 18, 2021 Results & Data Results & Data ([facility]) Vital Signs (Past 12 Hours) Vital Signs Pulse Pulse Pulse Resp BP BP Pulse Ox 01/26/21 04:00 85 16 132/79 96 01/26/21 02:11 99 H 132/92 01/26/21 00:01 110 H 183/80 H PG Care Time/CCT Total # of Minutes Spent Total Time Spent with Patient: Total time spent is greater than 50% in coordination of care (as documented) at patient's floor/unit and/or counseling patient: Coding
--- NOTE | 2021-01-26 09:18 | Discharge Summary ---
Date of Service January 26, 2021 Admission HPI Per Admitting Provider 70yo F w/ hx of metastatic breast cancer who presents with constipation and newly found PE. The patient was in the hospital until approx. 1 week ago when she was sent home from a [facility] hospital. Her reports that for the last week, she has had no solid BMs and only had watery BMs since then. She has also had increasing stomach & abdominal pain. She was brought to the ER, and was found to have a PE. She denies shortness of breath or chest pain at this time. Admission Exam Per Admitting Provider Constitutional: + acute distress Eyes: EOM intact bilaterally; no conjunctival abnormality ENMT: external ear and nose normal, oropharynx normal Neck: trachea midline, no thyromegaly normal visual inspection Respiratory: normal respiratory effort, lungs clear to auscultation no respiratory distress Cardiovascular: RRR, no murmur, no edema Gastrointestinal (Abdomen): Inspection/Auscultation: abdomen normal to inspection; abdomen not distended Skin: no rashes, warm and dry Neurologic: awake; + does not move all extremities (No left leg movement) Speech / Cognition: + abnormal cognition (Very slow responses.) Psychiatric: Orientation: alert, oriented to person and cooperative Principal Diagnosis Metastatic Ca, PE, Constipation Discharge Exam Constitutional + ill appearing, + thin, + altered mental status, + frail appearing and cooperative; + not well developed, + not well nourished and no acute distress Eyes EOM intact bilaterally; no conjunctival abnormality and + no PERRL (pupils assymetric ) ENMT Mouth: + dry oral mucous membranes Neck normal visual inspection Respiratory normal respiratory effort; no respiratory distress and no labored breathing Auscultation: + diminished lung sounds Cardiovascular Rate/Rhythm: regular rate and regular rhythm Vessels: posterior tibial pulses present and dorsalis pedis pulses present Extremities: normal capillary refill and + edema Gastrointestinal (Abdomen) Inspection/Auscultation: + abdomen distended and + hyperactive bowel sounds Percussion/Palpation: + abdomen tender (by report) and abdomen soft; no guarding Musculoskeletal does not move b/l LE generalized weakness Skin + pallor erythema b/l buttocks Neurologic + focal motor deficit (b/l legs ) and awake; + does not move all extremities (No left leg movement) Speech / Cognition: + abnormal cognition (Very slow responses.) Psychiatric Orientation: alert, oriented to person and cooperative; + not oriented to place (knows she is in the hospital) and + not oriented to time Affect: + anxious affect and + tearful affect Thought Content: + phobias Insight: + limited insight Judgement: + limited judgement Genitourinary styles draining yellow urine Discharge Data Allergies Allergy/AdvReac Type Severity Reaction Status Date / Time lactose Allergy Unknown Gastrointestinal Verified 01/18/21 15:26 Upset pork derived (porcine) Allergy Unknown CULTURE Verified 01/18/21 15:26 ISSUES Pork/Porcine Containing Allergy Unknown CULTURE Verified 01/18/21 15:26 Products ISSUES gluten AdvReac Intermediate Gastrointestinal Verified 01/18/21 15:26 Upset tramadol AdvReac Intermediate itching, Verified 01/18/21 15:26 stomach ache, gas and nausea & no appetite. grapefruit AdvReac Unknown Unknown Verified 01/18/21 15:26 Consultations 01/18/21 15:16 ED Decision to Admit Stat 01/18/21 20:42 Consult Palliative Care Routine Ordered Studies 01/18/21 13:16 CT abd pelvis IV con only Stat 01/18/21 20:42 CT angio chest PE protocol Routine Hospital Course (1) Malignant neoplasm of breast metastatic to bone: Progressive stage IV breast cancer with metastatic disease to brain and bone. Question of liver mets on imaging this admission as well. Was recently discharged from [facility] on January 09 after month-long stay. Brain mets were discovered at that time. Progressive severe weakness of b/l legs leading to that discovery. Of note, also with E.coli UTI in patient with chronic styles -- IV abx x 3 days While inpatient was treated with pain control, anxiolytics, and IV decadron for brain mets and bone pain Palliative care consulted. CHANGED TO DNR Patient placed on Dilaudid CERTIFIED MEDICATION AIDE during admission but decision was made for d/c on hospice at discharge however and son not comfortable with IV line and pump at home at this time. They were instructed if pain worsens that possible SQ infusion possible vs alternative medications --> Decision to continue fentanyl patch Q72h, with PO lorazepam and PO Dilaudid Q3 as needed --> Family stated improved control with dilaudid over morphine and discussed able to crush PO and make into slurry for easier administration if needed Found to have PE during admission and placed on Eliquis --> discontinued at discharge along with her oral chemotherapy everolimus and other usual medications at this time Discharged with services through [facility] Provided daughter with letter for [place] consulate for emergency [place] to be with patient during end of life. E-mailed and printed copy for . OF NOTE, HIGH SUSPICION FOR PATIENT/FAMILY TO BRING PATIENT BACK TO THE HOSPITAL IF THIS BECOMES OVERWHELMING. ---> DISCUSSED WITH PALLIATIVE CARE TEAM AND IF THAT WERE TO OCCUR, THEY WOULD PLEASE LIKE TO BE CONTACTED FROM THE EMERGENCY DEPARTMENT TO POTENTIALLY FACILITATE INPATIENT GIP (2) Pulmonary embolism: PE incidentally noted on CT a/p on 01/18. Eliquis inpatient subsequently discontinued as above d/c w Hospice (3) Brain metastases: cont steroids while inpatient, d/c at discharge as above Likely cause of leg weakness. 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 no further lab draws (8) Severe protein-calorie malnutrition: this will worsen further in light of advanced cancer no specific Rx (9) Encephalopathy: likely multifactorial - brain mets, narcotics, bowel issues, other UTI not tx on admission, Ecoli in patient with Styles --> changed Styles during admission on 01/26. Completed 3 days abx Discharged home with [facility] Rx's sent -- multiple attempts had to be made as complications with which pharma cy DISCUSSED WITH PALLIATIVE CARE TEAM AND IF PATIENT RETURNS TO EMERGENCY DEPARTMENT, THEY WOULD LIKE TO BE CONTACTED FROM THE EMERGENCY DEPARTMENT TO POTENTIALLY FACILIATE ADMISSION UNDER INPATIENT GIP Total Time Total Time Spent Total Time Spent (In Minutes): 120 Discharge Plan Discharge Items Patient Disposition: Hospice - Home Reason For Visit: PULMONARY EMBOLISM AND CONSTIPATION Discharge Diagnosis: Metastatic Cancer, Pulmonary Embolism, UTI, Constipation Goals: You have been hospitalized for an acute medical problem. During your stay at [facility], we have made an effort to correct the problem that brought you to the hospital while keeping you as comfortable as possible. Medications were used to bring your condition under control and your discharge instructions will include directions for any medications you should take after leaving the hospital. Please make sure you see your Primary Care Provider as part of your follow up plan. Activity: Resume your previous activity Non-emergency contact: Primary Care Provider Call non-emergency contact if: you have any medication questions, your symptoms worsen and your pain is concerning for you Follow-up/Referrals: Manolo Troy MD [Primary Care Provider] - (NO F/U APPT MADE; PATIENT IS GOING HOME ON HOSPICE.) Diet: Gluten Free Addtl Attending Provider Instructions: You have been hospitalized and found to have a pulmonary embolism as well as a urinary tract infection. You were placed on treatment for the pulmonary embolism, however given move towards hospice this will be discontinued. You completed a course of antibiotics for your UTI. You also had your styles exchanged during admission. It was found that your cancer had progressed and you were seen by palliative care and decision was made to arrange hospice at discharge. Prior to that decision you were treated with IV steroids for the brain metastasis. You will be sent with oral lorazepam and hydromorphone (dilaudid) to use as needed to keep you comfortable but if you require additional pain control you can re-discuss about a continuous infusion to help gain better control. You will continue the fentanyl patch. If it becomes difficult to take pills you can crush the hydromorphone and make a slurry to administer as oral solution as discussed by palliative care team in the hospital. All other medications will be discontinued at this time. Please call with any questions/concerns. It has been a pleasure being a part of the medical team providing for you while you have been in the hospital. Take care! Pending Studies at Discharge: No Stand-Alone Forms: My [facility] Medications and DC Order Prescriptions: New hydromorphone [Dilaudid] 2 mg Tablet 2 mg PO Q3H PRN (Reason: pain) Qty: 10 RF: 0 lorazepam 0.5 mg Tablet 0.5 mg PO Q6H PRN (Reason: agitation) Qty: 10 RF: 0 fentanyl 50 mcg/hr patch 72 hour 1 patch topical Q3D Qty: 1 RF: 0 fentanyl 50 mcg/hr patch 72 hour 3 patch transdermal Q72H 14 Days Qty: 5 RF: 0 hydromorphone 4 mg tablet 2 mg PO Q3H PRN (Reason: pain) Qty: 10 RF: 0 lorazepam 0.5 mg tablet 0.5 mg PO Q6H PRN (Reason: anxiety) Qty: 10 RF: 0 Continued prochlorperazine maleate 10 mg tablet 10 mg PO Q6H PRN (Reason: Nausea) RF: 0 lidocaine 5 % adhesive patch,medicated 1 patch topical DAILY RF: 0 bisacodyl 10 mg Suppository 10 mg IL QPM RF: 0 nystatin 100,000 unit/gram Cream 1 applic TOPICAL BID PRN (Reason: Rash) RF: 0 phenyleph-shark [id number] Cream 1 applic IL QID PRN (Reason: Hemorrhoids) RF: 0 Discontinued losartan 25 mg tablet 25 mg PO QDL Qty: 90 RF: 3 pantoprazole [Protonix] 40 mg tablet,delayed release (DR/EC) 40 mg PO QAM Qty: 30 RF: 1 lactulose 20 gram/30 mL solution 20 g PO BID Qty: 1500 RF: 0 sennosides [senna] 8.6 mg Tablet 17.2 mg PO HS PRN (Reason: Constipation) RF: 0 acetaminophen [Tylenol] 325 mg Tablet 650 mg PO Q6H PRN (Reason: Mild Pain (Scale Score 1-4)) RF: 0 olanzapine 5 mg Tablet 5 mg PO HS RF: 0 melatonin 3 mg Tablet 3 mg PO HS RF: 0 dexamethasone 4 mg Tablet 4 mg PO BID RF: 0 docusate sodium 100 mg Capsule 100 mg PO BID RF: 0 mirtazapine 15 mg Tablet 15 mg PO HS RF: 0 polyethylene glycol 3350 [Miralax] 17 gram/dose Powder 17 g PO DAILY PRN (Reason: Constipation) RF: 0 lorazepam 2 mg/mL concentrate 0 mg PO TID PRN (Reason: Anxiety) RF: 0 memantine 5 mg Tablet See Rx Instructions .ROUTE .COMPLEX RF: 0 everolimus (antineoplastic) 7.5 mg Tablet 7.5 mg PO HS RF: 0 hydromorphone [Dilaudid] 2 mg tablet 2 - 6 mg PO Q3H PRN (Reason: pain) RF: 0 ondansetron 4 mg tablet,disintegrating 4 mg PO AC RF: 0 Discharge Orders: Discharge Order (Routine); Ordered 01/27/21 Ordered By: Diana Stoll/Other Patient Handouts: Cancer: Managing Fatigue, ED Weakness (Uncertain Cause) Admission Data Admit Date/Time: 01/18/21 16:43 Attending Provider: Shay Best Admit Provider: Shay Best Primary Care Provider: Manolo Troy V. Other Providers: Sultana Nicole ; [facility],Home Healthcare ; Shay Best Other Interventions: Discharge Summary Assessment (RN) Last Done: 01/27/21 11:27 Supervising Physician Co-Signing Physician Notes I supervised Diana Vaca PA-C on this discharge. I interviewed and examined the patient independently of her. The plan is as written in her note except for any following changes/exceptions: None Very unfortunate 70yo F w/ hx of metastatic breast cancer. Symptoms have been managed as best as tolerated. More comfortable on exam today. Plan to go home on hospice. If the family cannot manage her symptoms at home, would consider inpatient hospice admission. Coding Level of Care Code D/C Day Management >30 mins Diagnoses Malignant neoplasm of breast metastatic to bone C50.919; C79.51 Pulmonary embolism I26.99 Brain metastases C79.31 Constipation K59.00 Hypertension I10 Hypertension type: essential hypertension Paraplegia G82.20 Hyponatremia E87.1 Severe protein-calorie malnutrition E43 Encephalopathy G93.40
--- NOTE | 2021-01-26 09:54 | Palliative Care Progress Note ---
Date of Service January 26, 2021 Assessment & Plan (1) Pain: Chronic low back pain with abdominal pain, has been better controlled. She has had 40 OME in prn dosing through [facility] in last 24 hours in addition to fentanyl patch. Will d/c GERIATRICIAN and convert to oral hydromorphone in anticipation of discharge. She will be followed by hospice who can adjust medications if she is unable to swallow (2) Constipation: Improved after relistor. She has very little po intake at this time. (3) Palliative care encounter: I spoke with Alonzo last evening and with Maritza's at bedside this morning. Family has decided to return home with hospice care today. She has been followed by [facility] home care and will be followed by [facility] hospice. She should be seen on day of discharge for her admission to hospice. (4) Malignant neoplasm of breast metastatic to bone: (5) Malignant neoplasm of bone: (6) Brain metastases: (7) Paraplegia: Admission and Anticipated Discharge Date Admission Date: January 18, 2021 Subjective Sleeping. Arouses briefly. No apparent discomfort. at bedside. Review of Systems Review of Systems: Unobtainable due to reduced consciousness [place] Symptom Assessment Scale Pain 0/3 Dyspnea 0/3 Anxiety 0/3 Drowsiness 2/3 Anorexia 2/3 Palliative Performance Score 20% Physical Exam Constitutional: + ill appearing and + lethargic; no acute distress ENMT: Mouth: + dry oral mucous membranes Respiratory: normal respiratory effort; no labored breathing Musculoskeletal: Extremities: + muscle atrophy Neurologic: LE weakness Results & Data ([facility]) Vital Signs (Past 12 Hours) Vital Signs Pulse Pulse Pulse Resp BP BP Pulse Ox 01/26/21 04:00 85 16 132/79 96 01/26/21 02:11 99 H 132/92 01/26/21 00:01 110 H 183/80 H PG Care Time/CCT Total # of Minutes Spent Total Time Spent with Patient: Total time spent is greater than 50% in coordination of care (as documented) at patient's floor/unit and/or counseling patient: Coding Level of Care Code 23790 Subseq Hosp Care Lvl 2 Diagnoses Pain R52 Constipation K59.00 Palliative care encounter Z51.5 Malignant neoplasm of breast metastatic to bone C50.919; C79.51 Malignant neoplasm of bone C41.9 Malignant neoplasm of bone location: unspecified location Brain metastases C79.31 Paraplegia G82.20 (1) Malignant neoplasm of bone Malignant neoplasm of bone location: unspecified location Qualified Code(s): C41.9 - Malignant neoplasm of bone and articular cartilage, unspecified
[2021-01-26] MEDS: dexAMETHasone 4 MG in SYRINGE 0 ML IV SCH ×2 (10:00→20:07)
[2021-01-26] MEDS: fentaNYL 50 MCG/HR TDSY TD SCH (10:34)
[2021-01-26] MEDS: BUTT PASTE (ZINC OXIDE 16%) 171 APPLN/57 GM JAR EXT SCH ×4 (10:39→20:04)
[2021-01-26] MEDS: PANTOprazole 40 MG TAB PO SCH ×2 (10:40→15:02)
[2021-01-26] MEDS: SENNA 8.6 MG TAB PO SCH ×2 (10:40→15:02)
[2021-01-26] MEDS: APIXABAN 5 MG TABLET PO SCH ×2 (10:41→20:05)
[2021-01-26] MEDS: POLYETHYLENE (MIRALAX) 17 GM PACK PO SCH (10:46)
[2021-01-26] MEDS: EVEROLIMUS 7.5 MG PO SCH (10:46)
[2021-01-26] MEDS ORDERED: cefTRIAXone SODIUM 1,000 MG in DEXTROSE 5% 50 ML IV SCH (12:00)
[2021-01-26] MEDS: HYDROmorphone HCL 2 MG TAB PO PRN ×2 (12:02→19:43)
[2021-01-26] MEDS: LORazepam 0.5 MG TAB PO PRN (12:18)
--- NOTE | 2021-01-26 13:53 | Hospitalist Progress Note ---
Date of Service January 26, 2021 Assessment & Plan (1) Malignant neoplasm of breast metastatic to bone: Progressive stage IV breast cancer with metastatic disease to brain and bone. Question of liver mets on imaging this admission as well. Was recently discharged from [facility] on January 09 after month-long stay. The brain mets were discovered then. She had developed severe weakness of both legs leading to the discovery of the brain mets. Remains on home everolimus 7.5 mg PO daily -- would d/c at discharge if decision tonight confirming hospice at d/c Functional status is very poor, she has lost 9kg of weight since November 05, she has failure to thrive with severe back pain/abd pain, and she has confusion. Pushing further with chemotherapy would be nearly impossible at this point. Agree with home hospice at discharge. , son and patient seem agreeable --> HOPEFUL FOR DC 01/26 vs 01/27 after son has further discussion with parents this afternoon Pain was ongoing issue despite fentanyl patch 50mcg q72h and dilaudid prn. Dilaudid APPLICATION PROJECT LEADER initiated 01/12 along with IV ativan at for sleep and she is much more comfortable today -- only utilized minimally yesterday but has had five doses for total of 1 mg so far today --> palliative to discuss possible SQ infusions with [facility] hospice to see if this would be a possibility as family would like to avoid IV access/APPLICATION PROJECT LEADER pump currently CHANGED TO DNR 01/24 For Now: Continue IV decadron BID (for brain mets and bone pain). Continue Dilaudid APPLICATION PROJECT LEADER, fentanyl patch -- > transitioning to PO ativan and PO Dilaudid for hospice at d/c. Rxs sent. Continuing fentanyl patch. Discontinuing all other medications at discharge Continue other palliative measures. Plans for d/c on Hospice tomorrow between 12-1pm (2) Pulmonary embolism: PE incidentally noted on CT a/p on 01/18. day #5 of eliquis 10mg BID x 1 week then 5mg BID thereafter -- intermittently refusing medications --> plans for d/c at discharge as moves towards comfort (3) Brain metastases: cont steroids. Likely cause of leg weakness. --> also with UTI not tx on admission. Still weakness despite tx UTI likely from met disease (4) Constipation: stopped relistor. stopped lactulose due to excess gas/distension. stop daily suppositories. continue with senna and miralax daily. CT abd/pelvis noted at admission - ?proctitis - due to prior radiation? infectious? stercoral colitis? Treat symptoms for now -- continues to have bowel movements (5) Hypertension: transitioning soon to hospice/palliative - stopped ARB (6) Paraplegia: acquired 2nd to brain mets or lumbar spine mets (or both) (7) Hyponatremia: SIADH due to brain mets? (8) Severe protein-calorie malnutrition: this will worsen further in light of advanced cancer no specific Rx (9) Encephalopathy: likely multifactorial - brain mets, narcotics, bowel issues, other UTI not tx on admission, Ecoli in patient with Styles --> changed Styles today. --> Got Levaquin 250mg yesterday, IV Rocephin today and will get third dose tomorrow to complete treatment cont olanzapine 5mg HS patient got much better sleep overnight and mental status is improved today updated at bedside. Discharge planned for tomorrow on Hospice Admission and Anticipated Discharge Date Admission Date: January 18, 2021 Subjective Patient evaluated this morning with at bedside. Pain controlled per patient, rating 2-3/10. No need for ativan at this time but discussed being available. Plans for oral agents at discharge with discussion about APPLICATION PROJECT LEADER if needed in future can be assisted with hospice. Liter van to be arranged between hopefully 12- tomorrow so that son also available as he is busy in morning and evening. Discussed completion of abx today for UTI. Questions/concerns addressed at this time. Review of Systems Review of Systems: All systems reviewed & are unremarkable except as noted in HPI & below Physical Exam Constitutional: + ill appearing, + thin, + altered mental status, + frail appearing and cooperative; + not well developed, + not well nourished and no acute distress Eyes: EOM intact bilaterally; + no PERRL (pupils assymetric ) ENMT: Mouth: + dry oral mucous membranes Neck: trachea midline, no thyromegaly Respiratory: normal respiratory effort; no respiratory distress and no labored breathing Auscultation: + diminished lung sounds Cardiovascular: Rate/Rhythm: regular rate and regular rhythm Heart Sounds: normal S1 and normal S2 Vessels: posterior tibial pulses present and dorsalis pedis pulses present; no JVD Extremities: normal capillary refill and + edema Gastrointestinal (Abdomen): Inspection/Auscultation: abdomen normal to inspection and normal bowel sounds Percussion/Palpation: abdomen soft; abdomen nontender and no guarding Skin: + pallor Neurologic: + focal motor deficit (b/l legs ) and awake; + does not move all extremities (No left leg movement) Speech / Cognition: + abnormal cognition (Very slow responses.) Psychiatric: Orientation: alert, oriented to person and cooperative; + not oriented to place (knows she is in the hospital) and + not oriented to time Affect: + anxious affect, + tearful affect and + labile affect Thought Content: + phobias Insight: + limited insight Judgement: + limited judgement Genitourinary: styles draining yellow urine Results & Data Results & Data ([facility]) Vital Signs (Past 12 Hours) Vital Signs Temp Pulse Pulse Resp BP Pulse Ox 01/26/21 10:40 36.3 C L 89 18 114/70 99 01/26/21 04:00 85 16 132/79 96 01/26/21 02:11 99 H 132/92 PG Care Time/CCT Total # of Minutes Spent Total Time Spent with Patient: Total time spent is greater than 50% in coordination of care (as documented) at patient's floor/unit and/or counseling patient: Coding Level of Care Code 40383 Subseq Hosp Care Lvl 2 Diagnoses Malignant neoplasm of breast metastatic to bone C50.919; C79.51 Pulmonary embolism I26.99 Brain metastases C79.31 Constipation K59.00 Hypertension I10 Hypertension type: essential hypertension Paraplegia G82.20 Hyponatremia E87.1 Severe protein-calorie malnutrition E43 Encephalopathy G93.40 (1) Hypertension Hypertension type: essential hypertension Qualified Code(s): I10 - Essential (primary) hypertension
[2021-01-26] MEDS: LORazepam 0.5 MG/1 ML VIAL IV SCH (20:01)
[2021-01-26] MEDS: MELATONIN 3 MG TAB PO SCH (20:05)
[2021-01-26] MEDS: OLANZapine 5 MG TABLET PO SCH (20:05)
[2021-01-26] MEDS: MIRTAZAPINE TAB 15 MG TAB PO SCH (20:05)
[2021-01-26] MEDS: LIDOCAINE 5% 1 PATCH TD SCH (20:07)
[2021-01-27] MEDS ORDERED: MoRPHine SULFATE 5 MG/0.25 ML UDP PO ONE (00:29)
[2021-01-27 07:34] VITALS: BP 137/84; TEMP 97.7; O2SAT 99
[2021-01-27] MEDS: CHECK fentaNYL PATCH PLACEMENT SCH (08:50)
[2021-01-27] MEDS: dexAMETHasone 4 MG in SYRINGE 0 ML IV SCH (08:50)
[2021-01-27] MEDS: BUTT PASTE (ZINC OXIDE 16%) 171 APPLN/57 GM JAR EXT SCH (08:50)
[2021-01-27] MEDS: PANTOprazole 40 MG TAB PO SCH (08:55)
[2021-01-27] MEDS: HYDROmorphone HCL 2 MG TAB PO PRN (10:50)
--- NOTE | 2021-01-27 10:56 | Palliative Care Progress Note ---
Date of Service January 27, 2021 Assessment & Plan (1) Palliative care encounter: Anticipate discharge home with hospice today. Answered her 's questions about decubitus ulcer, weakness and medications. Discussed with RN and hospitalist. (2) Pain: On fentanyl patch with prn hydromorphone. Family has found hydromorphone more effective than morphine. We discussed crushing tabs and making a slurry if she is unable to swallow tabs. is comfortable with this. (3) Constipation: Improved after relistor. Minimal po intake. (4) Anxiety: Managed with hs and prn lorazepam (5) Malignant neoplasm of breast metastatic to bone: (6) Malignant neoplasm of bone: (7) Brain metastases: (8) Paraplegia: Admission and Anticipated Discharge Date Admission Date: January 18, 2021 Subjective Lethargic. Voice is weak. She shakes her head when asked if she has pain and nods when asked if comfortable. She is taking sips of liquids but had difficulty swallowing dilaudid tablet last night. Review of Systems Review of Systems: [place] Symptom Assessment Scale Pain0/3 Anxiety 0/3 Dyspnea 0/3 Anxiety 0/3 Drowsiness 2/3 Palliative Performance Score 20% Physical Exam Constitutional: + ill appearing and + lethargic ENMT: Mouth: + dry oral mucous membranes Respiratory: no labored breathing Gastrointestinal (Abdomen): Percussion/Palpation: abdomen nontender Musculoskeletal: Extremities: + muscle atrophy Skin: Skin warm and dry Neurologic: b/l LE weakness Results & Data ([facility]) Vital Signs (Past 12 Hours) Vital Signs Temp Pulse Resp BP Pulse Ox 01/27/21 07:33 97.7 F 91 H 18 137/84 99 PG Care Time/CCT Total # of Minutes Spent Total Time Spent with Patient: Total time spent is greater than 50% in coordination of care (as documented) at patient's floor/unit and/or counseling patient: total time spent 35 minutes with more than 50% of time spent on symptom management, family education and support, coordination of care Coding Level of Care Code 22119 Subseq Hosp Care Lvl 3 Diagnoses Palliative care encounter Z51.5 Pain R52 Constipation K59.00 Anxiety F41.9 Malignant neoplasm of breast metastatic to bone C50.919; C79.51 Malignant neoplasm of bone C41.9 Malignant neoplasm of bone location: unspecified location Brain metastases C79.31 Paraplegia G82.20 (1) Malignant neoplasm of bone Malignant neoplasm of bone location: unspecified location Qualified Code(s): C41.9 - Malignant neoplasm of bone and articular cartilage, unspecified
[2021-01-27 11:29] VITALS: PULSE 103
[2021-01-27] MEDS: POLYETHYLENE (MIRALAX) 17 GM PACK PO SCH (11:42)
[2021-01-27] MEDS: SENNA 8.6 MG TAB PO SCH (11:43)
== END 2021-01-27 13:00 | disposition hospice, home (50) | DRG 391 ==
LOC: ED 12:10 → 2W 16:43 → SUATTDRO 16:43 → 2W 19:20 → 3W 01-20 02:00